=== PATIENT | female | born 1970 | race Two or more races ===

== ENCOUNTER 2022-03-15 18:13 | Inpatient (IN) | payer BC, SELFPAY ==
[2022-03-15 18:17] VITALS: BP 99/51; PULSE 112; RESP 16; TEMP 36.2; O2SAT 97
--- NOTE | 2022-03-15 18:46 | ED_ITS ---
HPI - General Adult General Time Seen by Provider: 18:47 Date Seen: 03/15/22 Chief complaint: Diabetic Related Problem Stated complaint: high blood sugar Time Seen by Provider: 03/15/22 18:26 Source: patient Mode of arrival: ambulatory Limitations: no limitations History of Present Illness HPI narrative: 51-year-old female who comes in today with an episode of lightheadedness at home. She says she is laying down and felt lightheaded and warm. She is concerned she might have a urinary tract infection as she has had some urinary frequency but no dysuria. She denies head pain, chest pain, shortness of breath, fevers, abdominal pain, numbness or tingling in the arms or legs. She does note some loose stools which is not unusual for her, no black or tarry stoo ls. She says she felt chilled earlier. Related Data Allergies Allergy/AdvReac Type Severity Reaction Status Date / Time metformin AdvReac Unknown Diarrhea Verified 03/15/22 20:30 Review of Systems Status of ROS: Reports: 10 or more systems reviewed and unremarkable except as noted in History and below Exam Narrative: Exam Narrative: General: Well-developed and well-nourished, no acute distress Head: Atraumatic and normocephalic Eyes: Pupils are equal reactive, extraocular motions intact, conjunctiva clear ENT: External nose and ears are normal, posterior pharynx without erythema or exudate Neck: No midline cervical tenderness, full spontaneous range of motion the neck, trachea midline, no adenopathy Heart: Tachycardic but regular no murmurs or thrills Lungs: Clear to auscultation bilaterally without wheezes or crackles Abdomen: Soft, nontender, nondistended with active bowel sounds Musculoskeletal: No tenderness, deformity, or edema Neurologic: Awake, alert, and oriented x3, no gross focal neurologic deficits, cranial nerves intact as tested Psych: Mood and affect are appropriate Skin: No rashes Const: Vital Signs, click to edit/add: Vital Signs - 24 hr 03/15/22 18:17 Temperature 97.1 F L Pulse Rate [Pulse Oximeter] 112 H Respiratory Rate 16 Blood Pressure [Le ft Upper Arm] 99/51 L Pulse Oximetry 97 Course Course Hospital Course: Patient seen examined, prior records are reviewed. Differential diagnosis includes but not limited to DKA, dehydration, electrolyte disturbance, pyelonephritis, sepsis, pneumonia, cardiomyopathy. Patient reports lightheadedness today as well as a chilled. On initial exam here, she is tachycardic and hypotensive. Mucous membranes are dry. No abdominal pain and no tenderness on exam. Lungs are clear and she has no shortness of breath, chest pain, or cough. Labs, IV fluids are initiated. Chest x-ray is ordered as well. Reevaluation(s) Reevaluation #1: White blood cell count is elevated, venous blood gas is reassuring. Remaining labs including lactate are pending. Given hypotension and tachycardia as well as leukocytosis, patient meets sepsis criteria. Zosyn and vancomycin will be ordered along with double fluid bolus, CT scan of chest, abdomen, and pelvis ordered to evaluate for source of sepsis. Likely this will be urinary but cannot exclude other sources based on physical exam limitations related to body habitus. Time: 20:05 Reevaluation #2: Lactate is significantly elevated at 5.8. IV fluid bolus and antibiotics have already been initiated. Time: 20:11 Reevaluation #3: Care discussed with Dr. Del Valle for admission. Urinalysis is consistent with urinary tract infection, IV antibiotics have already been initiated. CT scan is pending. Blood pressure improved with fluids, will recheck lactate. Time: 21:04 Vital Signs Vital signs: Initial Vital Signs Temperature 97.1 F L 03/15/22 18:17 Temperature Source Temporal Artery Scan 03/15/22 18:17 Pulse Rate 112 H 03/15/22 18:17 Pulse Rhythm 03/15/22 18:17 Respiratory Rate 16 03/15/22 18:17 Blood Pressure 99/51 L 03/15/22 18:17 Blood Pressure Mean 67 03/15/22 18:17 Blood Pressure Position Semi-Fowlers 03/15/22 18:17 Pulse Oximetry 97 03/15/22 18:17 Vital Signs Temperature 97.1 F L 03/15/22 18:17 Pulse Rate 112 H 03/15/22 18:17 Respiratory Rate 16 03/15/22 18:17 Blood Pressure 99/51 L 03/15/22 18:17 Pulse Oximetry 97 03/15/22 18:17 Temperature 97.1 F L 03/15/22 18:17 Pulse Rate 112 H 03/15/22 18:17 Respiratory Rate 16 03/15/22 18:17 Blood Pressure 99/51 L 03/15/22 18:17 Pulse Oximetry 97 03/15/22 18:17 Medical Decision Making Medical Records Medical records reviewed: Yes I reviewed the patient's medical records Lab Data Lab results reviewed: Yes I reviewed the patient's lab results Labs: Lab Results 03/15/22 03/15/22 03/15/22 Range/Units 18:49 19:02 19:02 WBC 15.58 H (4.50-11.00) K/uL RBC 4.25 (4.00-5.20) m/uL Hgb 12.0 (12.0-16.0) gm/dL Hct 36.5 (33.0-51.0) % MCV 86 (80-100) fL MCH 28 (26-34) pg MCHC 33 (32-36) gm/dL RDW Coeff of [place] 13.7 (11.5-15.5) % Plt Count 87 L (140-440) K/uL Neut % (Auto) 93.8 H (42.0-72.0) % Lymph % (Auto) 2.6 L (20-44) % [place] % (Auto) 3.0 (0.0-11.0) % Eos % (Auto) 0.0 (0.0-7.0) % Baso % (Auto) 0.1 (0.0-3.0) % Neut # (Auto) 14.60 H (1.7-7.0) K/uL Lymph # (Auto) 0.40 L (0.90-2.90) K/uL [place] # (Auto) 0.50 (0.00-0.90) K/UL Eos # (Auto) 0.00 (0.00-0.50) K/uL Baso # (Auto) 0.00 (0.00-0.30) K/uL Abs Immat Gran (auto) 0.10 (0.00-0.30) K/uL Imm/Tot Granulo (auto) 0.5 % VBG pH 7.346 (7.32-7.43) VBG pCO2 40 (40-50) mmHG VBG pO2 30.2 (25-47) mmHG VBG HCO3 22 (21-28) mmol/L Sodium (135-149) mmol/L Potassium (3.6-5.1) mmol/L Chloride (96-114) mmol/L Carbon Dioxide (20-32) mmol/L BUN (7-30) mg/dL Creatinine (0.5-1.5) mg/dL Estimated GFR ml/min Glucose (60-115) mg/dL Lactate (0.5-1.9) mmol/L Calcium (8.4-10.6) mg/dL Total Bilirubin (0.1-1.5) mg/dL Direct Bilirubin (0.0-0.5) mg/dL AST (12-35) U/L ALT (4-35) U/L Alkaline Phosphatase (40-150) U/L Total Protein (6.0-8.3) g/dL Albumin (3.3-5.0) g/dL Lipase (23-300) U/L Urine Color (Yellow) Urine Appearance (Clear) Urine pH (5.0-8.5) Ur Specific [place] (1.000-1.030) Urine Protein (Negative) Urine Glucose (UA) (Negative) Urine Ketones (Negative) Urine Blood (Negative) Urine Nitrite (Negative) Urine Bilirubin (Negative) Urine Urobilinogen (0.2-1.0) Ur Leukocyte Esterase (Negative) Urine RBC (0-2) Urine WBC (0-5) Ur Squamous Epith Cells (None-Few) Urine Bacteria (None) POC Troponin I 0.03 (0.01-0.04) ng/ml 03/15/22 03/15/22 03/15/22 Range/Units 19:02 19:02 19:50 WBC (4.50-11.00) K/uL RBC (4.00-5.20) m/uL Hgb (12.0-16.0) gm/dL Hct (33.0-51.0) % MCV (80-100) fL MCH (26-34) pg MCHC (32-36) gm/dL RDW Coeff of [place] (11.5-15.5) % Plt Count (140-440) K/uL Neut % (Auto) (42.0-72.0) % Lymph % (Auto) (20-44) % [place] % (Auto) (0.0-11.0) % Eos % (Auto) (0.0-7.0) % Baso % (Auto) (0.0-3.0) % Neut # (Auto) (1.7-7.0) K/uL Lymph # (Auto) (0.90-2.90) K/uL [place] # (Auto) (0.00-0.90) K/UL Eos # (Auto) (0.00-0.50) K/uL Baso # (Auto) (0.00-0.30) K/uL Abs Immat Gran (auto) (0.00-0.30) K/uL Imm/Tot Granulo (auto) % VBG pH (7.32-7.43) VBG pCO2 (40-50) mmHG VBG pO2 (25-47) mmHG VBG HCO3 (21-28) mmol/L Sodium 131 L (135-149) mmol/L Potassium 3.3 L (3.6-5.1) mmol/L Chloride 101 (96-114) mmol/L Carbon Dioxide 20 (20-32) mmol/L BUN 31 H (7-30) mg/dL Creatinine 1.4 (0.5-1.5) mg/dL Estimated GFR 46 ml/min Glucose 512 H* (60-115) mg/dL Lactate 5.8 H* (0.5-1.9) mmol/L Calcium 7.9 L (8.4-10.6) mg/dL Total Bilirubin 2.3 H (0.1-1.5) mg/dL Direct Bilirubin 0.8 H (0.0-0.5) mg/dL AST 27 (12-35) U/L ALT 27 (4-35) U/L Alkaline Phosphatase 272 H (40-150) U/L Total Protein 6.0 (6.0-8.3) g/dL Albumin 2.9 L (3.3-5.0) g/dL Lipase 131 (23-300) U/L Urine Color Brown A (Yellow) Urine Appearance Cloudy A (Clear) Urine pH 6.0 (5.0-8.5) Ur Specific [place] 1.025 (1.000-1.030) Urine Protein 3+ A (Negative) Urine Glucose (UA) 2+ A (Negative) Urine Ketones Trace A (Negative) Urine Blood 3+ A (Negative) Urine Nitrite Positive A (Negative) Urine Bilirubin 2+ A (Negative) Urine Urobilinogen 4.0 (0.2-1.0) Ur Leukocyte Esterase 3+ A (Negative) Urine RBC 5-10 A (0-2) Urine WBC 25-50 A (0-5) Ur Squamous Epith Cells None (None-Few) Urine Bacteria Many A (None) POC Troponin I (0.01-0.04) ng/ml Critical Care Time Critical Care Time Critical Care Time: Yes Attestation: The patient required my highest level preparedness to intervene emergently and I personally spent this critical care time directly and personally managing the patient. This critical care time included: Obtaining a history; Examining the patient; Pulse oximetry; Ordering and reviewing of studies; Arranging urgent treatment with development of a management plan; Evaluation of patients response to treatment; Frequent reassessment discussions with other providers. This critical care time was performed to assess and manage the high probability of imminent life-threatening deterioration that could result in multiorgan failure. It was exclusive of separate billable procedures and treating other patients and teaching time. Sepsis with multiple antibiotics Total Critical Care Time in Minutes: 130 Discharge Plan Discharge Clinical Impression: Sepsis, Urinary tract infection Patient Disposition: Admitted As Inpatient
--- NOTE | 2022-03-15 18:48 | CRLHL7_ITS ---
For Patients: As a result of the Century Cures Act, medical imaging exams and procedure reports are released immediately into your electronic medical record. You may view this report before your referring provider. If you have questions, please contact your health care provider. INDICATION: Near-syncope. TECHNIQUE: Chest 2 views. COMPARISON: None FINDINGS: The heart is normal in size. The pulmonary vasculature is within normal limits. There is a nodular opacity within the right mid to upper lung, measuring 1.2 cm. The heart is normal in size. Mild pulmonary vascular congestion. Mild degenerative changes of the spine. IMPRESSION: 1. Nodular opacity measuring 1.2 cm upper to mid right lung, recommend further characterization with CT. 2. Mild pulmonary vascular congestion. Dictated by Dianelys Gutiérrez MD @ 03/15/2022 8:30:47 PM Dictated by: Dianelys Gutiérrez MD @ 03/15/2022 20:31:34 (Electronically Signed)
[2022-03-15 19:25] LABS: HCO3 VBG 22 mmol/L (21-28); PCO2 VBG 40 mmHG (40-50); PO2 VBG 30.2 mmHG (25-47); pH VBG 7.346 (7.32-7.43)
[2022-03-15 19:27] LABS: Basophils Percent Auto 0.1 % (0.0-3.0); Hematocrit 36.5 % (33.0-51.0); Immature Granulocytes Pct Auto 0.5 %; Lymphocytes Percent Auto 2.6 % (20-44); Mean Corpuscular HGB Conc 33 gm/dL (32-36); Mean Corpuscular Hemoglobin 28 pg (26-34); Mean Corpuscular Volume 86 fL (80-100); Neutrophils Percent Auto 93.8 % (42.0-72.0); Platelet Count* 87 K/uL (140-440); RDW Coefficient of Variation % 13.7 % (11.5-15.5); Red Blood Count 4.25 m/uL (4.00-5.20); White Blood Count* 15.58 K/uL (4.50-11.00)
[2022-03-15] MEDS: ONDANSETRON 2 MG/ML inj 4 MG IVP (19:27)
[2022-03-15] MEDS: 0.9 % SODIUM CHLORIDE 1000 ml 1,000 ML IV ×2 (19:30→23:00)
[2022-03-15 19:32] LABS: Slide Review Reflex No
[2022-03-15 19:40] LABS: Troponin, Point-of-Care* 0.03 ng/ml (0.01-0.04)
[2022-03-15 19:51] LABS: Albumin* 2.9 g/dL (3.3-5.0); Chloride* 101 mmol/L (96-114)
[2022-03-15 19:52] LABS: Potassium* 3.3 mmol/L (3.6-5.1); Sodium* 131 mmol/L (135-149)
[2022-03-15 19:54] LABS: Alkaline Phosphatase* 272 U/L (40-150); Aspartate Amino Transferase* 27 U/L (12-35); Bilirubin Direct* 0.8 mg/dL (0.0-0.5); Bilirubin Total* 2.3 mg/dL (0.1-1.5); Blood Urea Nitrogen* 31 mg/dL (7-30); Carbon Dioxide* 20 mmol/L (20-32); Creatinine* 1.4 mg/dL (0.5-1.5); Estimated Glomerular Filt Rate 46 ml/min
[2022-03-15 19:55] LABS: Alanine Aminotransferase* 27 U/L (4-35); Calcium* 7.9 mg/dL (8.4-10.6); Lipase* 131 U/L (23-300)
--- NOTE | 2022-03-15 20:04 | CRLHL7_ITS ---
For Patients: As a result of the Century Cures Act, medical imaging exams and procedure reports are released immediately into your electronic medical record. You may view this report before your referring provider. If you have questions, please contact your health care provider. INDICATION: Sepsis. COMPARISON: Chest radiograph from today. TECHNIQUE: CT examination of the chest, abdomen, and pelvis was performed with the uneventful intravenous administration of 122 cc of Isovue 370 while 3 mm thick axial sections were obtained from above the apices of the lungs through the symphysis pubis. Oral contrast was not administered. Please note that all CT scans at this facility use dose modulation, iterative reconstruction, and/or weight-based dosing when appropriate to reduce radiation dose to as low as reasonably achievable. FINDINGS: : In the chest, the lungs are clear with no sign of significant infiltrate or mass. The apparent nodule in the medial the right upper chest is seen to be an osteophyte arising from the inferior costochondral junction of the 1st rib. There is no sign of any pulmonary infiltrate or effusion. There is satisfactory enhancement of the pulmonary arteries with no sign of pulmonary embolism. There is no sign of mediastinal or hilar mass or adenopathy. The heart is normal in appearance for the patient`s age. There is age appropriate appearance of the thoracic aorta and ascending great vessels. There is no sign of supraclavicular or axillary mass or adenopathy. There is minimal left hydronephrosis and mild left hydroureter extending to the UVJ. There is no sign of any obstructing calculus or mass to result in the obstruction. There is prominent thickening of the wall of the largely collapsed urinary bladder consistent with prominent cystitis which may result in the left ureteral obstruction. There is a very tiny cortical cyst in the posterior upper pole of the left kidney. The right kidney is normal in appearance. There is no sign of right-sided hydronephrosis or hydroureter. There is no sign of renal or ureteral calculi on either side. In the abdomen, the liver, spleen, pancreas, and adrenals are normal in appearance. The kidneys are normal in appearance. The gallbladder is normal in appearance. The abdominal aorta is normal in caliber with no sign of dilatation. There is no sign of retroperitoneal mass or adenopathy. The stomach, loops of small bowel, and colon in the abdomen are normal in appearance. In the pelvis, the appendix is nonvisualized, but there is no sign of an inflammatory process in the area of the appendix. The loops of small bowel, colon, and rectum in the pelvis are normal in appearance. The uterus normal in appearance. There is no sign of pelvic or inguinal mass or adenopathy. There is no sign of free air or free fluid in the abdomen or pelvis. There is prominent L4-5 disc degenerative disease. There is moderate diffuse L4-5 disc bulging with posterior osteophytic ridging which probably produces moderate spinal stenosis. There is mild scoliosis of the thoracic and lumbar spine convex towards the left. IMPRESSION: Minimal left hydronephrosis and mild left hydroureter which appears to be the result of prominent cystitis. No sign of right hydronephrosis or right hydroureter. Normal CT of the chest with contrast. The possible nodule seen in the right upper chest on today`s chest radiograph appears to be simply an osteophyte arising from the inferior costochondral junction of the right 1st rib. CT of the abdomen shows no additional abnormalities. CT of the pelvis shows no additional abnormalities. Probable moderate spinal stenosis at L4-5. Please note that all CT scans at this facility use dose modulation, iterative reconstruction, and/or weight-based dosing when appropriate to reduce radiation dose to as low as reasonably achievable. Dictated by Gage Anderson MD @ 03/15/2022 10:24:29 PM (Electronically Signed)
[2022-03-15 20:06] LABS: Glucose* 512 mg/dL (60-115)
[2022-03-15 20:09] LABS: Lactate* 5.8 mmol/L (0.5-1.9)
[2022-03-15 20:11] LABS: Appearance Urine Cloudy (Clear); Bilirubin Urine 2+ (Negative); Blood Urine 3+ (Negative); Color Urine Brown (Yellow); Glucose Urine 2+ (Negative); Ketones Urine Trace (Negative); Leukocyte Esterase Urine 3+ (Negative); Nitrite Urine Positive (Negative); Protein Urine 3+ (Negative); Specific Gravity Urine 1.025 (1.000-1.030)
[2022-03-15 20:15] VITALS: BP 114/56; PULSE 110; RESP 18; O2SAT 97
[2022-03-15 20:25] LABS: Bacteria Urine Many; WBC Urine 25-50 (0-5)
[2022-03-15 20:43] VITALS: BP 87/45; PULSE 104; RESP 18; O2SAT 96
[2022-03-15 21:36] LABS: Lactate* 4.1 mmol/L (0.5-1.9)
[2022-03-15] MEDS: PIPERACILLIN/TAZOBACTAM 3.375 GM in 0.9 % SODIUM CHLORIDE Mini-bag 100 ML IVPB (21:36)
--- NOTE | 2022-03-15 21:37 | ED.NURSE ---
Critical received from lab: Lactate 4.1. informed.
[2022-03-15 22:00] VITALS: BP 103/32; PULSE 106; RESP 18; O2SAT 96
[2022-03-15 22:10] LABS: SARS PCR* Negative SARS-CoV-2 (Negative)
[2022-03-15 22:40] VITALS: BP 96/61; PULSE 101; RESP 18; O2SAT 96
[2022-03-15 23:00] VITALS: BP 99/53; PULSE 101; PULSE 129; RESP 18; O2SAT 96
--- NOTE | 2022-03-15 23:15 | ED.NURSE ---
Blood sugar 400
--- NOTE | 2022-03-15 23:25 | PM.IMHP1 ---
Hospitalist- H&P: HPI History of Present Illness Date Seen: 03/15/22 Chief complaint: high blood sugar Narrative: Alison Dela Cruz is a 51 year old diabetic female admitted through the emergency department with onset of chills and vomiting today. Patient reports that she was in her usual state of health until this morning when she had onset of chills and shivering. She had 1 emesis which was nonbloody. She felt a little shortness of breath she felt fatigue and malaise. She lost her appetite. She has not had a cold or cough. No chest pain. She has chronic abdominal pain which has not changed. She has not had a change in her bowels. No bloody stools. She does have some diarrhea from Crohn's disease. She has had urinary hesitancy but no clear dysuria and no flank pain. Much of the information noted here is from the medical record. Patient struggles to give me any details about her medical history, medications, recent evaluation and treatment. Review of Systems Narrative: She reports that she was doing fairly well until this morning when she had onset of shaking chills. No other recent symptoms of acute illness. She does report chronic dyspnea, chronic abdominal pain, chronic diarrhea. Urinary incontinence also chronic problem. [facility] Medical History (Updated 03/15/22 @ 23:44 by Fred Del Valle MD) Cognitive impairment Complex partial epilepsy Crohn's disease Depression Diabetes mellitus Dyslipidemia Hyperlipidemia Hypersomnia Morbid obesity [place] Peripheral neuropathy Urinary incontinence, urge Family History (Updated 03/15/22 @ 23:35 by Fred Del Valle MD) Mother Diabetes Sister Diabetes Social History (Updated 03/15/22 @ 23:36 by Fred Del Valle MD) Narrative: She lives in [place] with her sister and her sister's family. Sister is Nicci Davila. 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 Code status is full. She does not smoke. She rarely drinks alcohol. She does not work outside the home. Her sister sets up her medications for her Meds Home Medications and Allergies Allergies Allergy/AdvReac Type Severity Reaction Status Date / Time metformin AdvReac Unknown Diarrhea Verified 03/15/22 20:30 Exam Narrative: Exam Narrative: She is alert and appears in no obvious distress. Tired appearing. She follows simple instructions well. She answers questions appropriately though appears to have limited knowledge of recent medical evaluation. For example she did not remember that she has recently had a sleep study or colonoscopy. She did recall having a recent lumbar puncture. She did not know her medications except her insulin. Eyes normal oropharynx with very small airway neck is supple without mass or adenopathy. Respirations are clear to auscultation without wheezing rales rhonchi. Cardiovascular distant S1, S2, regular rate and rhythm. Abdomen: Bowel sounds active. Abdomen is soft without tenderness or mass. No significant intertriginous rash. External genitalia normal. Extremities without significant edema. She has intact pulses. Good capillary refill. No rash. Const: Vital Signs, click to edit/add: Vital Signs - 24 hr 03/15/22 18:17 Temperature 97.1 F L Pulse Rate [Pulse Oximeter] 112 H Respiratory Rate 16 Blood Pressure [Le ft Upper Arm] 99/51 L Pulse Oximetry 97 Hospitalist - H&P: Result Labs Labs: Short CBC 03/15/22 Range/Units 19:02 WBC 15.58 H (4.50-11.00) K/uL Hgb 12.0 (12.0-16.0) gm/dL Hct 36.5 (33.0-51.0) % Plt Count 87 L (140-440) K/uL BMP 03/15/22 19:02 Sodium 131 L Potassium 3.3 L Chloride 101 Carbon Dioxide 20 BUN 31 H Creatinine 1.4 Glucose 512 H* Calcium 7.9 L Liver Function 03/15/22 Range/Units 19:02 Total Bilirubin 2.3 H (0.1-1.5) mg/dL Direct Bilirubin 0.8 H (0.0-0.5) mg/dL AST 27 (12-35) U/L ALT 27 (4-35) U/L Alkaline Phosphatase 272 H (40-150) U/L Albumin 2.9 L (3.3-5.0) g/dL Urine 03/15/22 Range/Units 19:50 Urine Color Brown A (Yellow) Urine Appearance Cloudy A (Clear) Urine pH 6.0 (5.0-8.5) Ur Specific [place] 1.025 (1.000-1.030) Urine Protein 3+ A (Negative) Urine Glucose (UA) 2+ A (Negative) Imaging CT Chest/Ab/Pelvis: Radiologist's impression: IMPRESSION: Minimal left hydronephrosis and mild left hydroureter which appears to be the result of prominent cystitis. No sign of right hydronephrosis or right hydroureter. Normal CT of the chest with contrast. The possible nodule seen in the right upper chest on today`s chest radiograph appears to be simply an osteophyte arising from the inferior costochondral junction of the right 1st rib. CT of the abdomen shows no additional abnormalities. CT of the pelvis shows no additional abnormalities. Probable moderate spinal stenosis at L4-5. Assessment and Plan Assessment and plan (1) Sepsis: Problem comment: Tachycardic, tachypneic, hypotensive, elevated lactate and elevated white count. Urinary source. Responding fairly well to fluids and antibiotics. Status: Acute (2) Urinary tract infection: Status: Acute (3) Electrolyte abnormality: Problem comment: Monitor and correct with fluid resuscitation Status: Acute (4) Diabetes mellitus: Problem comment: Currently hyperglycemic. Will attempt to control with subcutaneous insulin. Status: Acute (5) Cognitive impairment: Problem comment: Significant pre-existing cognitive impairment. Will evaluate her ability to manage her medical problems while she is here. Status: Acute (6) Morbid obesity: Problem comment: Appears to be somewhat physically disabled due to morbid obesity Status: Acute Plan Will admit for IV fluids, IV antibiotics, monitoring sepsis, management of diabetes. Total time spent today is 80 minutes, 50 minutes in coordination of care and discussing with patient and other providers ongoing management of sepsis due to UTI and diabetes
--- NOTE | 2022-03-15 23:46 | ED.NURSE ---
sisters Radhames Hall [phone] lives in [place] Kya Davila (lives together) [phone]
[2022-03-16] VITALS (8 sets, daily range): BP systolic 93–146; BP diastolic 62–87; PULSE 109–129; RESP 20–24; TEMP 36.6–37.4; O2SAT 91–95; BMI 51.0
[2022-03-16] MEDS: POTASSIUM BICARB 25 MEQ EFFERVESCENT TAB PO (00:03)
[2022-03-16] MEDS: LACTATED RINGERS 1000 ML 1,000 ML 125 ML IV ×3 (00:15→16:57)
[2022-03-16] MEDS: PIPERACILLIN/TAZOBACTAM 3.375 GM in 0.9 % SODIUM CHLORIDE Mini-bag 100 ML IVPB ×4 (02:26→23:06)
[2022-03-16] MEDS: ACETAMINOPHEN 325 MG TABLET 650 MG PO ×2 (03:00→19:20)
--- NOTE | 2022-03-16 07:10 | PC.NURSE ---
Patient arrived to unit at 2330. Denies pain. A1-2. Denies N/V. Afebrile. C/o headache, administered Tylenol for relief. Tachycardia of 129bpm. [place] updated. No new orders. Intermittent dry cough.
[2022-03-16 07:30] LABS: Lactate* 4.6 mmol/L (0.5-1.9)
[2022-03-16 07:35] LABS: Albumin* 2.8 g/dL (3.3-5.0)
[2022-03-16 07:36] LABS: Chloride* 108 mmol/L (96-114); Potassium* 3.3 mmol/L (3.6-5.1); Sodium* 135 mmol/L (135-149)
[2022-03-16 07:38] LABS: Alkaline Phosphatase* 185 U/L (40-150); Aspartate Amino Transferase* 31 U/L (12-35); Bilirubin Direct* 1.4 mg/dL (0.0-0.5); Bilirubin Total* 3.1 mg/dL (0.1-1.5); Blood Urea Nitrogen* 32 mg/dL (7-30); Carbon Dioxide* 18 mmol/L (20-32); Creatinine* 1.6 mg/dL (0.5-1.5); Est. Creatinine Clearance* 33.27; Estimated Glomerular Filt Rate 39 ml/min; Glucose* 257 mg/dL (60-115)
[2022-03-16 07:39] LABS: Alanine Aminotransferase* 26 U/L (4-35); Calcium* 7.8 mg/dL (8.4-10.6); Magnesium* 1.7 mg/dL (1.5-2.6)
[2022-03-16 08:25] LABS: Hematocrit 36.3 % (33.0-51.0); Hemoglobin* 12.2 gm/dL (12.0-16.0); Mean Corpuscular HGB Conc 34 gm/dL (32-36); Mean Corpuscular Hemoglobin 29 pg (26-34); Mean Corpuscular Volume 85 fL (80-100); Platelet Count* 52 K/uL (140-440); Red Blood Count 4.28 m/uL (4.00-5.20); White Blood Count* 23.38 K/uL (4.50-11.00)
[2022-03-16 08:26] LABS: Immature Granulocytes Pct Auto 1.9 %; Lymphocytes Percent Auto 2.6 % (20-44); Monocytes Percent Auto 4.2 % (0.0-11.0); Neutrophils Percent Auto 91.3 % (42.0-72.0); RDW Coefficient of Variation % 14.1 % (11.5-15.5); Slide Review Reflex Yes
[2022-03-16 08:29] LABS: Slide Review Acceptable Review (Acceptable)
--- NOTE | 2022-03-16 09:56 | PM.IMPN1 ---
Progress Note: A&P Assessment and plan (1) Sepsis: Problem details: @ admission: Tachycardic, tachypneic, hypotensive, elevated lactate and elevated white count. Urinary source. Responding fairly well to fluids and antibiotics. TODAY: remains tachy; +blood cultures, afebrile. WBC, lactate, bilirubin all elevated, platelets decreased - fluid bolus given this am. remains weak and two assist with walker. talked with sister, Nicci, in the room with patient Status: Acute (2) Bacteremia: Problem details: gram neg rods in all cultures continue Zosyn until stable and sensitives known - move to our CCU for closer management Status: Acute (3) Urinary tract infection: Problem details: as above Status: Acute (4) Diabetes mellitus: Problem details: bedside glucose: 268, 400, 451 continue basal & bolus with accuchecks Status: Acute (5) Electrolyte abnormality: Problem details: low potassium, low platelets, elevated biliruin -- all sepsis related. Status: Acute (6) Cognitive impairment: Problem details: Significant pre-existing cognitive impairment. Will evaluate her ability to manage her medical problems while she is here. Status: Acute (7) Morbid obesity: Problem details: Appears to be somewhat physically disabled due to morbid obesity Status: Acute Subjective Date Seen: 03/16/22 Interval history: Daily Progress Note - Hospital Medicine Day #: 2, Day 2 Zosyn CC: bacteremic; insulin dep diabetes/hyperglycemia/ weakness, cognitive decline OVERNIGHT UPDATES FROM STAFF & MED, LAB, IMAGING UPDATES remains weak, a little confused but answers questions today. we called her sister on patients cell phone. Nicci says Alison is staying with her currently while she looks for better living situation for her sister. she states she at a baseline can walk and sometimes uses a cane - this weakness today of barely being able to stand and using a walker and unsteadiness is all new. I explained +blood cultures, lactate, creatinine levels and need for CCU care (transfer to our CCU status) and continue fluids, antibiotics, blood sugar management. She agreed and understood plan. Afebrile overnight, T-max 98.9? Blood pressures are soft 93 systolic to 112, over 51 to 56 Tachycardic 129, 109, 117 respiratory rate 24, satting 93% on room air 126 kilos Leukocytosis is increased from 15.6-23.4 Hemoglobin is stable Platelet count is dropping 87-52 Blood gas yesterday at 7:00 p.m. was reassuring with a normal pH, CO2 and bicarb This morning's chemistries show a mildly depressed potassium, elevated BUN and creatinine as compared to yesterday Creatinine is now 1.6 from 1.4 BUN is 32 from 31 Lactate is 4.6 from 4.1 and previously 5.8 Magnesium is normal Calcium is mildly depressed at 7.8 but this is not ionized Total bili is climbing, direct bili is climbing I think this is all from sepsis Albumin is low I reviewed the urine from yesterday, blood cultures and urine cultures CT chest abdomen pelvis IMPRESSION: Minimal left hydronephrosis and mild left hydroureter which appears to be the result of prominent cystitis. No sign of right hydronephrosis or right hydroureter. Normal CT of the chest with contrast. The possible nodule seen in the right upper chest on today`s chest radiograph appears to be simply an osteophyte arising from the inferior costochondral junction of the right 1st rib. CT of the abdomen shows no additional abnormalities. CT of the pelvis shows no additional abnormalities. Probable moderate spinal stenosis at L4-5 Review of Systems: See subjective Cardiac: No new chest pain/pressure/palpitations. Respiratory: no new dyspnea. GI: No abdominal bloating Objective: up in the chair; I observed her getting up with staff and walking to bathroom, fairly steady but weak Vitals: see above Lungs: Clear. Cardiac: S1S2. Disposition/Potential discharge - Likely to return to previous living situation. Total time is 35 minutes with greater than 50% spent in counseling and coordination of care. . Exam Const: Vital Signs, click to edit/add: Vital Signs - 24 hr 03/15/22 18:17 03/15/22 23:00 03/15/22 22:40 Temperature 97.1 F L Pulse Rate Pulse Rate [Pulse Oximeter] 112 H 101 H 101 H Pulse Rate [Right] Respiratory Rate 16 18 18 Blood Pressure [Le ft Arm] Blood Pressure [Le ft Upper Arm] 99/51 L 99/53 L 96/61 Pulse Oximetry 97 96 96 Oxygen Delivery Me thod Room Air Room Air 03/15/22 22:00 03/15/22 20:43 03/15/22 20:15 Temperature Pulse Rate Pulse Rate [Pulse Oximeter] 106 H 104 H 110 H Pulse Rate [Right] Respiratory Rate 18 18 18 Blood Pressure [Le ft Arm] Blood Pressure [Le ft Upper Arm] 103/32 L 87/45 L 114/56 L Pulse Oximetry 96 96 97 Oxygen Delivery Ok thod Room Air Room Air Room Air 03/15/22 23:00 03/16/22 03:00 03/16/22 00:00 Temperature 98.9 F 98.4 F Pulse Rate 129 H Pulse Rate [Pulse Oximeter] Pulse Rate [Right] 129 H 117 H Respiratory Rate 24 24 Blood Pressure [Le ft Arm] 112/87 93/66 Blood Pressure [Le ft Upper Arm] Pulse Oximetry 93 94 Oxygen Delivery Ok thod Room Air Room Air 03/16/22 00:00 03/16/22 07:46 Temperature Pulse Rate 109 H Pulse Rate [Pulse Oximeter] Pulse Rate [Right] Respiratory Rate 24 Blood Pressure [Le ft Arm] Blood Pressure [Le ft Upper Arm] Pulse Oximetry 94 Oxygen Delivery Ok thod Room Air Labs Labs: Laboratory Results - last 24 hr 03/15/22 03/15/22 03/15/22 18:49 19:02 19:02 WBC 15.58 H Corrected WBC RBC 4.25 Hgb 12.0 Hct 36.5 MCV 86 MCH 28 MCHC 33 RDW Coeff of Laquita 13.7 Plt Count 87 L Neut % (Auto) 93.8 H Lymph % (Auto) 2.6 L [place] % (Auto) 3.0 Eos % (Auto) 0.0 Baso % (Auto) 0.1 Neut # (Auto) 14.60 H Lymph # (Auto) 0.40 L [place] # (Auto) 0.50 Eos # (Auto) 0.00 Baso # (Auto) 0.00 Abs Immat Gran (auto) 0.10 Neutrophils % (Manual) Lymphocytes % (Manual) Reactive Lymphs % (Man) Monocytes % (Manual) Eosinophils % (Manual) Basophils % (Manual) Metamyelocytes % (Man) Myelocytes % (Man) Promyelocytes % (Man) Blast Cells % (Manual) Imm/Tot Granulo (auto) 0.5 Abs Neuts (Manual) Lymphocytes # (Manual) Monocytes # (Manual) Eosinophils # (Manual) Basophils # (Manual) Abs Metamyelocytes (Man) Abs Myelocytes (Man) Abs Promyelocytes (Man) Abs Blast Cells (Man) Nucleated RBCs Diff Slide Review Hypersegmented Neuts Smudge Cells Toxic Granulation Dohle Bodies Dee Rods Clumped Platelets Large Platelets Giant Platelets Dimorphic RBCs Polychromasia Hypochromasia Poikilocytosis Basophilic Stippling Anisocytosis Microcytosis Macrocytosis Spherocytes Pappenheimer Bodies Sickle Cells Target Cells Tear Drop Cells Ovalocytes Stomatocytes Helmet Cells [place] Bodies [place] Rings Jc Cells Acanthocytes (Spur) Rouleaux Schistocytes VBG pH 7.346 VBG pCO2 40 VBG pO2 30.2 VBG HCO3 22 Sodium Potassium Chloride Carbon Dioxide BUN Creatinine Estimated Creat Clear Estimated GFR Glucose Lactate Calcium Magnesium Total Bilirubin Direct Bilirubin AST ALT Alkaline Phosphatase Total Protein Albumin Lipase Urine Color Urine Appearance Urine pH Ur Specific [place] Urine Protein Urine Glucose (UA) Urine Ketones Urine Blood Urine Nitrite Urine Bilirubin Urine Urobilinogen Ur Leukocyte Esterase Urine RBC Urine WBC Ur Squamous Epith Cells Urine Bacteria SARS-CoV-2 (PCR) POC Troponin I 0.03 03/15/22 03/15/22 03/15/22 19:02 19:02 19:50 WBC Corrected WBC RBC Hgb Hct MCV MCH MCHC RDW Coeff of [place]quita Plt Count Neut % (Auto) Lymph % (Auto) [place] % (Auto) Eos % (Auto) Baso % (Auto) Neut # (Auto) Lymph # (Auto) [place] # (Auto) Eos # (Auto) Baso # (Auto) Abs Immat Gran (auto) Neutrophils % (Manual) Lymphocytes % (Manual) Reactive Lymphs % (Man) Monocytes % (Manual) Eosinophils % (Manual) Basophils % (Manual) Metamyelocytes % (Man) Myelocytes % (Man) Promyelocytes % (Man) Blast Cells % (Manual) Imm/Tot Granulo (auto) Abs Neuts (Manual) Lymphocytes # (Manual) Monocytes # (Manual) Eosinophils # (Manual) Basophils # (Manual) Abs Metamyelocytes (Man) Abs Myelocytes (Man) Abs Promyelocytes (Man) Abs Blast Cells (Man) Nucleated RBCs Diff Slide Review Hypersegmented Neuts Smudge Cells Toxic Granulation Dohle Bodies Dee Rods Clumped Platelets Large Platelets Giant Platelets Dimorphic RBCs Polychromasia Hypochromasia Poikilocytosis Basophilic Stippling Anisocytosis Microcytosis Macrocytosis Spherocytes Pappenheimer Bodies Sickle Cells Target Cells Tear Drop Cells Ovalocytes Stomatocytes Helmet Cells [place] Bodies [place] Rings Jc Cells Acanthocytes (Spur) Rouleaux Schistocytes VBG pH VBG pCO2 VBG pO2 VBG HCO3 Sodium 131 L Potassium 3.3 L Chloride 101 Carbon Dioxide 20 BUN 31 H Creatinine 1.4 Estimated Creat Clear Estimated GFR 46 Glucose 512 H* Lactate 5.8 H* Calcium 7.9 L Magnesium Total Bilirubin 2.3 H Direct Bilirubin 0.8 H AST 27 ALT 27 Alkaline Phosphatase 272 H Total Protein 6.0 Albumin 2.9 L Lipase 131 Urine Color Brown A Urine Appearance Cloudy A Urine pH 6.0 Ur Specific [place] 1.025 Urine Protein 3+ A Urine Glucose (UA) 2+ A Urine Ketones Trace A Urine Blood 3+ A Urine Nitrite Positive A Urine Bilirubin 2+ A Urine Urobilinogen 4.0 Ur Leukocyte Esterase 3+ A Urine RBC 5-10 A Urine WBC 25-50 A Ur Squamous Epith Cells None Urine Bacteria Many A SARS-CoV-2 (PCR) POC Troponin I 03/15/22 03/15/22 03/16/22 21:20 21:26 07:00 WBC Cancelled Corrected WBC Cancelled RBC Cancelled Hgb Cancelled Hct Cancelled MCV Cancelled MCH Cancelled MCHC Cancelled RDW Coeff of Laquita Cancelled Plt Count Cancelled Neut % (Auto) Cancelled Lymph % (Auto) Cancelled [place] % (Auto) Cancelled Eos % (Auto) Cancelled Baso % (Auto) Cancelled Neut # (Auto) Cancelled Lymph # (Auto) Cancelled [place] # (Auto) Cancelled Eos # (Auto) Cancelled Baso # (Auto) Cancelled Abs Immat Gran (auto) Cancelled Neutrophils % (Manual) Cancelled Lymphocytes % (Manual) Cancelled Reactive Lymphs % (Man) Cancelled Monocytes % (Manual) Cancelled Eosinophils % (Manual) Cancelled Basophils % (Manual) Cancelled Metamyelocytes % (Man) Cancelled Myelocytes % (Man) Cancelled Promyelocytes % (Man) Cancelled Blast Cells % (Manual) Cancelled Imm/Tot Granulo (auto) Cancelled Abs Neuts (Manual) Cancelled Lymphocytes # (Manual) Cancelled Monocytes # (Manual) Cancelled Eosinophils # (Manual) Cancelled Basophils # (Manual) Cancelled Abs Metamyelocytes (Man) Cancelled Abs Myelocytes (Man) Cancelled Abs Promyelocytes (Man) Cancelled Abs Blast Cells (Man) Cancelled Nucleated RBCs Cancelled Diff Slide Review Cancelled Hypersegmented Neuts Cancelled Smudge Cells Cancelled Toxic Granulation Cancelled Dohle Bodies Cancelled Dee Rods Cancelled Clumped Platelets Cancelled Large Platelets Cancelled Giant Platelets Cancelled Dimorphic RBCs Cancelled Polychromasia Cancelled Hypochromasia Cancelled Poikilocytosis Cancelled Basophilic Stippling Cancelled Anisocytosis Cancelled Microcytosis Cancelled Macrocytosis Cancelled Spherocytes Cancelled Pappenheimer Bodies Cancelled Sickle Cells Cancelled Target Cells Cancelled Tear Drop Cells Cancelled Ovalocytes Cancelled Stomatocytes Cancelled Helmet Cells Cancelled [place] Bodies Cancelled [place] Rings Cancelled [place] Cells Cancelled Acanthocytes (Spur) Cancelled Rouleaux Cancelled Schistocytes Cancelled VBG pH VBG pCO2 VBG pO2 VBG HCO3 Sodium Potassium Chloride Carbon Dioxide BUN Creatinine Estimated Creat Clear Estimated GFR Glucose Lactate 4.1 H* Calcium Magnesium Total Bilirubin Direct Bilirubin AST ALT Alkaline Phosphatase Total Protein Albumin Lipase Urine Color Urine Appearance Urine pH Ur Specific [place] Urine Protein Urine Glucose (UA) Urine Ketones Urine Blood Urine Nitrite Urine Bilirubin Urine Urobilinogen Ur Leukocyte Esterase Urine RBC Urine WBC Ur Squamous Epith Cells Urine Bacteria SARS-CoV-2 (PCR) Negative SARS-CoV-2 POC Troponin I 03/16/22 03/16/22 03/16/22 07:00 07:00 07:00 WBC 23.38 H Corrected WBC RBC 4.28 Hgb 12.2 Hct 36.3 MCV 85 MCH 29 MCHC 34 RDW Coeff of Laquita 14.1 Plt Count 52 L Neut % (Auto) 91.3 H Lymph % (Auto) 2.6 L [place] % (Auto) 4.2 Eos % (Auto) 0.0 Baso % (Auto) 0.0 Neut # (Auto) 21.30 H Lymph # (Auto) 0.60 L [place] # (Auto) 1.00 H Eos # (Auto) 0.00 Baso # (Auto) 0.00 Abs Immat Gran (auto) 0.40 H Neutrophils % (Manual) Lymphocytes % (Manual) Reactive Lymphs % (Man) Monocytes % (Manual) Eosinophils % (Manual) Basophils % (Manual) Metamyelocytes % (Man) Myelocytes % (Man) Promyelocytes % (Man) Blast Cells % (Manual) Imm/Tot Granulo (auto) 1.9 Abs Neuts (Manual) Lymphocytes # (Manual) Monocytes # (Manual) Eosinophils # (Manual) Basophils # (Manual) Abs Metamyelocytes (Man) Abs Myelocytes (Man) Abs Promyelocytes (Man) Abs Blast Cells (Man) Nucleated RBCs Diff Slide Review Acceptable Review Hypersegmented Neuts Smudge Cells Toxic Granulation Dohle Bodies Dee Rods Clumped Platelets Large Platelets Giant Platelets Dimorphic RBCs Polychromasia Hypochromasia Poikilocytosis Basophilic Stippling Anisocytosis Microcytosis Macrocytosis Spherocytes Pappenheimer Bodies Sickle Cells Target Cells Tear Drop Cells Ovalocytes Stomatocytes Helmet Cells [place] Bodies [place] Rings Jc Cells Acanthocytes (Spur) Rouleaux Schistocytes VBG pH VBG pCO2 VBG pO2 VBG HCO3 Sodium 135 Potassium 3.3 L Chloride 108 Carbon Dioxide 18 L BUN 32 H Creatinine 1.6 H Estimated Creat Clear 33.27 Estimated GFR 39 Glucose 257 H Lactate 4.6 H* Calcium 7.8 L Magnesium 1.7 Total Bilirubin 3.1 H Direct Bilirubin 1.4 H AST 31 ALT 26 Alkaline Phosphatase 185 H Total Protein 6.0 Albumin 2.8 L Lipase Urine Color Urine Appearance Urine pH Ur Specific [place] Urine Protein Urine Glucose (UA) Urine Ketones Urine Blood Urine Nitrite Urine Bilirubin Urine Urobilinogen Ur Leukocyte Esterase Urine RBC Urine WBC Ur Squamous Epith Cells Urine Bacteria SARS-CoV-2 (PCR) POC Troponin I
[2022-03-16 11:35] LABS: HCO3 VBG 19 mmol/L (21-28); PCO2 VBG 36 mmHG (40-50); PO2 VBG 39.9 mmHG (25-47); pH VBG 7.323 (7.32-7.43)
[2022-03-16] MEDS: 0.9 % SODIUM CHLORIDE 1000 ml 1,000 ML 500 ML IV (12:21)
[2022-03-16 12:33] LABS: C Reactive Protein* 20.3 mg/dL (0.5-1.0)
--- NOTE | 2022-03-16 14:57 | PC.NURSE ---
Care of this patient transferred to Clarissa Desai @ 11:30 am, pt moved from 256 to CCU-4 for CCU status.
[2022-03-16] MEDS: LACTATED RINGERS 1000 ML 1,000 ML 500 ML IV ×2 (15:46→19:21)
--- NOTE | 2022-03-16 16:13 | PC.NURSE ---
Tele at initial assessment sinus tachycardia. Pt denied CP or SOB at initial assessment.
[2022-03-16 16:23] LABS: Lactate* 3.5 mmol/L (0.5-1.9)
[2022-03-16 16:46] LABS: Albumin* 2.6 g/dL (3.3-5.0); Chloride* 106 mmol/L (96-114); Potassium* 3.9 mmol/L (3.6-5.1); Sodium* 133 mmol/L (135-149)
[2022-03-16 16:49] LABS: Alanine Aminotransferase* 30 U/L (4-35); Alkaline Phosphatase* 154 U/L (40-150); Aspartate Amino Transferase* 38 U/L (12-35); Bilirubin Total* 2.6 mg/dL (0.1-1.5); Blood Urea Nitrogen* 36 mg/dL (7-30); Carbon Dioxide* 20 mmol/L (20-32); Creatinine* 1.7 mg/dL (0.5-1.5); Est. Creatinine Clearance* 31.31; Estimated Glomerular Filt Rate 36 ml/min; Total Protein* 5.7 g/dL (6.0-8.3)
[2022-03-16 16:50] LABS: Calcium* 7.5 mg/dL (8.4-10.6)
[2022-03-16 17:02] LABS: C.Difficile Negative (Negative); CDIFFEPI 027 PRESUMPTIVE NEGATIVE (Negative)
[2022-03-16 17:26] LABS: Glucose* 385 mg/dL (60-115)
[2022-03-16] MEDS: LACTOBACILLUS ACIDOPHILUS 1 TABLET 1 TAB PO (18:24)
--- NOTE | 2022-03-16 19:32 | PC.NURSE ---
PATIENT AFEBRILE AND O2 SATS 91-95%RA. SOB WITH EXERTION . UP WITH A1, WALKER AND GAIT BELT AND TOLERATED ACTIVITY WELL. DENIED PAIN UNTIL 1900 AND REPORTED HEADACHE. TYLENOL ADMINISTERED. PATIENT HAVING LOOSE STOOLS. CDIFF SAMPLE SENT AND NEGATIVE. BOTH INCONTINENT AND CONTINENT OF STOOL. PATIENT DENIED N/V. HEART RATE INCREASING THROUGHOUT SHIFT FROM 100'S AT [address] PARNELL UPDATED AND ORDER RECEIVED FOR LACTATED RINGERS BOLUS WHICH WAS STARTED. PATIENT'S SISTER REPORTED PATIENT IS GLUTEN FREE. PATIENT CALLED TO [facility] AND ORDERED SUPPER WHICH WAS CHICKEN [place]. DISCUSSED GLUTEN FREE DIET WITH PATIENT AND SHE STATED SHE WANTED THE PASTA GLUTEN GIVES ME A LITTLE BIT OF A STOMACH ACHE. OFFERED GLUTEN FREE ALTERNATIVES WHICH PATIENT REFUSED.
[2022-03-16] MEDS: LOPERAMIDE HCL 2 MG CAPSULE PO (21:23)
[2022-03-16] MEDS: ATORVASTATIN 10 MG TABLET 20 MG PO (21:23)
[2022-03-17] VITALS (11 sets, daily range): BP systolic 106–165; BP diastolic 57–93; PULSE 104–118; RESP 20–32; TEMP 36.3–38.2; O2SAT 85–98
[2022-03-17] MEDS: NYSTATIN POWDER 1 APPLIC TOPICAL ×3 (01:52→21:27)
[2022-03-17] MEDS: PIPERACILLIN/TAZOBACTAM 3.375 GM in 0.9 % SODIUM CHLORIDE Mini-bag 100 ML IVPB (06:14)
[2022-03-17 06:18] LABS: HCO3 VBG 24 mmol/L (21-28); PCO2 VBG 41 mmHG (40-50); PO2 VBG 21.6 mmHG (25-47)
[2022-03-17 06:24] LABS: Hematocrit 37.1 % (33.0-51.0); Hemoglobin* 12.5 gm/dL (12.0-16.0); Mean Corpuscular HGB Conc 34 gm/dL (32-36); Mean Corpuscular Hemoglobin 28 pg (26-34); Mean Corpuscular Volume 84 fL (80-100); Platelet Count* 58 K/uL (140-440); Red Blood Count 4.43 m/uL (4.00-5.20); White Blood Count* 22.64 K/uL (4.50-11.00)
[2022-03-17 06:27] LABS: Slide Review Reflex No
[2022-03-17 06:46] LABS: Albumin* 2.8 g/dL (3.3-5.0); Chloride* 107 mmol/L (96-114); Potassium* 3.2 mmol/L (3.6-5.1); Sodium* 135 mmol/L (135-149)
--- NOTE | 2022-03-17 06:47 | PC.NURSE ---
Pt pleasant and cooperative. Up numerous times during shift for using the bathroom. For both stool and urine. Inc of both at times. Immodium given earlier in shift to help with loose, incontinent stools. Does well with 1A and walker.
[2022-03-17 06:48] LABS: Bilirubin Total* 2.1 mg/dL (0.1-1.5); Creatinine* 1.3 mg/dL (0.5-1.5); Est. Creatinine Clearance* 40.95; Estimated Glomerular Filt Rate 50 ml/min
[2022-03-17 06:49] LABS: Alanine Aminotransferase* 32 U/L (4-35); Alkaline Phosphatase* 204 U/L (40-150); Aspartate Amino Transferase* 40 U/L (12-35); Blood Urea Nitrogen* 36 mg/dL (7-30); Carbon Dioxide* 22 mmol/L (20-32); Gamma Glutamyl Transpeptidase* 258 U/L (8-55); Glucose* 234 mg/dL (60-115); Total Protein* 6.2 g/dL (6.0-8.3)
[2022-03-17 06:50] LABS: Calcium* 8.1 mg/dL (8.4-10.6); Magnesium* 1.8 mg/dL (1.5-2.6)
[2022-03-17 06:56] LABS: NT Pro B Type NatriureticPept* 8520 PG/mL (0-125)
[2022-03-17 07:08] LABS: C Reactive Protein* 22.1 mg/dL (0.5-1.0); Troponin I* 0.49 ng/mL (0.01-0.04)
--- NOTE | 2022-03-17 07:54 | CRLHL7_ITS ---
For Patients: As a result of the Century Cures Act, medical imaging exams and procedure reports are released immediately into your electronic medical record. You may view this report before your referring provider. If you have questions, please contact your health care provider. INDICATION: Pulmonary nodule apparent CHF. Sepsis. COMPARISON: The chest portion of an 03/15/2022 examination TECHNIQUE: : CT examination of the chest was performed with the uneventful intravenous administration of 95 cc of Isovue 370 while thin axial sections were obtained from above the apices of the lungs to the lung bases. Please note that all CT scans at this facility use dose modulation, iterative reconstruction, and/or weight-based dosing when appropriate to reduce radiation dose to as low as reasonably achievable. FINDINGS: : HEART and MEDIASTINUM: The heart size is normal. There is no mediastinal or hilar adenopathy or mass. There is no pericardial effusion. PULMONARY ARTERIAL CIRCULATION: There is no visible intraluminal filling defect to suggest pulmonary embolus. LUNGS: Findings of mild interstitial edema. Opacities of both lung bases, right greater than left could represent atelectasis, aspiration or pneumonia. PLEURAL SPACES: Small right effusion. Tiny left effusion VISUALIZED UPPER ABDOMEN: Hepatic steatosis. Otherwise, the limited visualized upper abdominal structures appear normal. OSSEOUS STRUCTURES: Age-appropriate appearance. No acute fracture or destructive process. TUBES and LINES: None. IMPRESSION: 1. There is no finding of acute pulmonary embolus. 2. Mild interstitial edema. 3. Bibasilar airspace disease, right greater the left. Small right effusion. Tiny left effusion. The airspace disease could represent atelectasis, aspiration or pneumonia. 4. The lung and pleural findings are new compared to 03/15/20[address] Please note that all CT scans at this facility use dose modulation, iterative reconstruction, and/or weight-based dosing when appropriate to reduce radiation dose to as low as reasonably achievable. Dictated by Gilbert Lance MD @ 03/17/2022 9:01:05 AM (Electronically Signed)
--- NOTE | 2022-03-17 08:53 | REH.OT ---
OT/PT: Patient with decline in status, transferred to CCU4 yesterday, having additional work up today. Per MD, OT/PT to hold today. Will check status tomorrow.
[2022-03-17] MEDS: 0.9 % SODIUM CHLORIDE 1000 ml 1,000 ML 500 ML IV (08:59)
[2022-03-17 09:30] LABS: Lactate* 1.8 mmol/L (0.5-1.9)
[2022-03-17] MEDS: ACETAMINOPHEN 325 MG TABLET 650 MG PO (09:57)
[2022-03-17] MEDS: LOPERAMIDE HCL 2 MG CAPSULE PO (09:57)
[2022-03-17] MEDS: LACTOBACILLUS ACIDOPHILUS 1 TABLET 1 TAB PO ×3 (09:57→17:30)
[2022-03-17 10:01] LABS: Troponin I* 0.06 ng/mL (0.01-0.04)
[2022-03-17] MEDS: IPRAT-ALBUT 0.5-2.5 MG/3 ML NEB 1 NEB IH ×3 (10:06→21:27)
[2022-03-17] MEDS: NYSTATIN CREAM 30 GM 1 APPLIC TOPICAL (10:19)
--- NOTE | 2022-03-17 11:36 | PM.IMPN1 ---
Progress Note: A&P Assessment and plan (1) Sepsis: Problem details: @ admission: Tachycardic, tachypneic, hypotensive, elevated lactate and elevated white count. Urinary source. Responding fairly well to fluids and antibiotics. TODAY: remains tachy; +blood cultures, tmax 100.8 WBC, lactate, bilirubin all downtrending; platelets decreased but stable. CRP up, procal down -- all sepsis related. fluid bolus given this am of 1 liter NS, continue LR at 125cc/hr adding nebs; oxygen; aerobika/ISP changed abx to rocephin, recheck blood cultures and urine this am Status: Acute (2) Bacteremia: Problem details: gram neg rods in all cultures CCU care fluids; abx no pressor support currently Status: Acute (3) Demand ischemia: Problem details: trend troponin, treat underlying issues; soft blood pressures; tachy; on telemetry; reviewed ECG no ST segment changes; sinus tachy echo this afternoon Status: Acute (4) Urinary tract infection: Problem details: as above Status: Acute (5) Diabetes mellitus: Problem details: bedside glucose: 334 last night 196 this am A1C 10.8 continue basal & bolus with accuchecks Status: Acute (6) Electrolyte abnormality: Problem details: low potassium, low platelets, elevated biliruin -- all sepsis related. Status: Acute (7) Cognitive impairment: Problem details: Significant pre-existing cognitive impairment. Will evaluate her ability to manage her medical problems while she is here. Status: Acute (8) Morbid obesity: Problem details: Appears to be somewhat physically disabled due to morbid obesity Status: Acute (9) Elevated LFTs: Problem details: fatty liver; sepsis Status: Acute Subjective Date Seen: 03/17/22 Interval history: Daily Progress Note - Hospital Medicine Day #: 3, s/p 2days of Zosyn, transition this morning to IV Rocephin CC: bacteremic; insulin dep diabetes/hyperglycemia/ weakness, cognitive decline OVERNIGHT UPDATES FROM STAFF & MED, LAB, IMAGING UPDATES patient moved to CCU yesterday am; now on oxygen; troponin increasing, potassium decreasing. on fluids and rec'd bolus for sepsis. lactate is finally normal. ECG reviewed this am. She is awake and talking; able to be standyby 1A to the bathroom with walker. tired; wheezy, feels more SOB this am. sent for CTA. T-max 100.8? Blood pressure is 108 systolic over 65 diastolic, 106/93, 124/82 Persistently tachycardic 116 to 120s Respiratory rate increased 20s and up to 30 Pulse ox dropped into the low to mid 80s this morning with ambulation, 2 L to keep her in the low 90s CBC has peaked, however markedly still elevated C reactive protein is up trending while the procalcitonin is down trending Hemoglobin is stable Platelet count is depressed but stable., baseline was over 200 prior to illness Blood gas is stable. PH is normal, pCO2 is normal Creatinine is down trending from 1.7-1.3 Potassium is mildly depressed Lactate elevation has resolved A1c 10.8 Troponin elevated 0.5, from 0.06 and 0.03 on admission. no chest pain/heaviness. BNP 8500 ECG shows sinus tachy; no ST elevation/depression CTA this am: 1. There is no finding of acute pulmonary embolus. 2. Mild interstitial edema. 3. Bibasilar airspace disease, right greater the left. Small right effusion. Tiny left effusion. The airspace disease could represent atelectasis, aspiration or pneumonia. 4. The lung and pleural findings are new compared to 03/15/2022 blood cultures; urine culture grown ECOLI and 2nd gram neg alison still being identified. Review of Systems: See subjective Cardiac: No new chest pain/pressure/palpitations. Respiratory: feels more wheezy GI: No abdominal bloating Objective:awake in bed; NC o2. alert. Vitals: see above Lungs: exp wheezes noted. Cardiac: S1S2. Disposition/Potential discharge - Likely will return with sister to her home vs short term rehab. Total time is 35 minutes with greater than 50% spent in counseling and coordination of care. . Exam Const: Vital Signs, click to edit/add: Vital Signs - 24 hr 03/16/22 15:00 03/16/22 15:00 03/16/22 16:30 Temperature 98 F Pulse Rate 113 H Pulse Rate [Right] 113 H 111 H Respiratory Rate 20 22 Blood Pressure [Le ft Arm] 114/62 Pulse Oximetry 95 Oxygen Delivery Me thod Room Air Oxygen Flow Rate 03/16/22 20:58 03/16/22 23:31 03/16/22 23:31 Temperature 98.3 F Pulse Rate 122 H Pulse Rate [Right] 122 H 122 H Respiratory Rate 22 Blood Pressure [Le ft Arm] 129/65 Pulse Oximetry 91 Oxygen Delivery Me thod Room Air Oxygen Flow Rate 03/16/22 23:31 03/17/22 03:00 03/17/22 07:00 Temperature 99.3 F 98.6 F 100.8 F H Pulse Rate Pulse Rate [Right] 122 H 109 H 118 H Respiratory Rate 22 22 30 H Blood Pressure [Le ft Arm] 146/69 H 124/82 108/65 Pulse Oximetry 91 90 85 L Oxygen Delivery Me thod Room Air Room Air Room Air Oxygen Flow Rate 03/17/22 11:00 03/17/22 07:37 03/17/22 07:00 Temperature 97.9 F Pulse Rate 113 H Pulse Rate [Right] 116 H 116 H Respiratory Rate 30 H 30 H Blood Pressure [Le ft Arm] 106/93 H Pulse Oximetry 98 Oxygen Delivery Me thod Nasal Cannula Oxygen Flow Rate 2 03/17/22 11:26 Temperature 97.9 F Pulse Rate Pulse Rate [Right] Respiratory Rate Blood Pressure [Le ft Arm] Pulse Oximetry Oxygen Delivery Me thod Oxygen Flow Rate Labs Labs: Laboratory Results - last 24 hr 03/15/22 03/16/22 03/16/22 19:02 07:00 11:26 WBC RBC Hgb Hct MCV MCH MCHC Plt Count VBG pH 7.323 VBG pCO2 36 L VBG pO2 39.9 VBG HCO3 19 L Sodium Potassium Chloride Carbon Dioxide BUN Creatinine Estimated Creat Clear Estimated GFR Glucose Hemoglobin A1c Lactate Calcium Magnesium Total Bilirubin GGT AST ALT Alkaline Phosphatase Troponin I 0.06 H* C-Reactive Protein 20.3 H NT-Pro-B Natriuret Pep Total Protein Albumin Procalcitonin 94.90 H Stl C.difficile Tox PCR St C. diff Tox Epid 027 03/16/22 03/16/22 03/16/22 14:43 16:20 16:20 WBC RBC Hgb Hct MCV MCH MCHC Plt Count VBG pH VBG pCO2 VBG pO2 VBG HCO3 Sodium 133 L Potassium 3.9 Chloride 106 Carbon Dioxide 20 BUN 36 H Creatinine 1.7 H Estimated Creat Clear 31.31 Estimated GFR 36 Glucose 385 H* Hemoglobin A1c Lactate 3.5 H Calcium 7.5 L Magnesium Total Bilirubin 2.6 H GGT AST 38 H ALT 30 Alkaline Phosphatase 154 H Troponin I C-Reactive Protein NT-Pro-B Natriuret Pep Total Protein 5.7 L Albumin 2.6 L Procalcitonin Stl C.difficile Tox PCR Negative St C. diff Tox Epid 027 PRESUMPTIVE NEGATIVE 03/16/22 03/17/22 03/17/22 16:20 05:50 05:50 WBC 22.64 H RBC 4.43 Hgb 12.5 Hct 37.1 MCV 84 MCH 28 MCHC 34 Plt Count 58 L VBG pH VBG pCO2 VBG pO2 VBG HCO3 Sodium 135 Potassium 3.2 L Chloride 107 Carbon Dioxide 22 BUN 36 H Creatinine 1.3 Estimated Creat Clear 40.95 Estimated GFR 50 Glucose 234 H Hemoglobin A1c 10.80 H Lactate Calcium 8.1 L Magnesium 1.8 Total Bilirubin 2.1 H GGT 258 H AST 40 H ALT 32 Alkaline Phosphatase 204 H Troponin I 0.49 H* C-Reactive Protein 22.1 H NT-Pro-B Natriuret Pep 8520 H Total Protein 6.2 Albumin 2.8 L Procalcitonin 45.50 H Stl C.difficile Tox PCR St C. diff Tox Epid 027 03/17/22 05:50 WBC RBC Hgb Hct MCV MCH MCHC Plt Count VBG pH 7.380 VBG pCO2 41 VBG pO2 21.6 L VBG HCO3 24 Sodium Potassium Chloride Carbon Dioxide BUN Creatinine Estimated Creat Clear Estimated GFR Glucose Hemoglobin A1c Lactate 1.8 Calcium Magnesium Total Bilirubin GGT AST ALT Alkaline Phosphatase Troponin I C-Reactive Protein NT-Pro-B Natriuret Pep Total Protein Albumin Procalcitonin Stl C.difficile Tox PCR St C. diff Tox Epid 027
[2022-03-17] MEDS: cefTRIAXone 2 GM in 0.9 % SODIUM CHLORIDE Mini-bag 100 ML IVPB (12:34)
[2022-03-17] MEDS: PERFLUTREN LIPID MICROSPHERES 2 ML VIAL IV (13:30)
[2022-03-17 14:13] LABS: Appearance Urine Cloudy (Clear); Bilirubin Urine Negative (Negative); Blood Urine 3+ (Negative); Color Urine Amber (Yellow); Glucose Urine Negative (Negative); Ketones Urine Negative (Negative); Protein Urine 2+ (Negative); Urobilinogen Urine 0.2 (0.2-1.0)
[2022-03-17 14:14] LABS: Amorphous Sediment Urine Few; Bacteria Urine Few; Leukocyte Esterase Urine Trace (Negative); Nitrite Urine Negative (Negative); RBC Urine 50-100 (0-2); Squamous Epithelial Cell Urine Moderate (None-Few)
[2022-03-17] MEDS: LACTATED RINGERS 1000 ML 1,000 ML 125 ML IV ×2 (15:53→20:17)
--- NOTE | 2022-03-17 17:18 | PC.NURSE ---
End of shift-- Very pleasant and cooperative, alert and oriented baseline developmentally delayed patient. She c/o a mild headache today that resolved with Tylenol and denied any other pain. VSS. B/Ps soft today at 100s/50s and pt is tachycardic with HR 100-120, tachypneic with RR 24-30, and highest temp today 100.8F. SPO2 noted to be as low as 84% on RA today. O2 applied at 1L per n.c. and O2 sats maintained >90% on 1L per n.c. LS clear but diminished. Telemetry shows sinus tachycardia. She denied nausea and ate 75-100% of a regular diet. No BMs today. Pt is up to the BR with assist of 1, belt and walker and tolerated it fair. Pt has voided small amounts of blood tinged dustin urine today very frequently and is occasionally incontinent. Report to oncoming shift.
[2022-03-17] MEDS: ATORVASTATIN CALCIUM 40 MG TABLET PO (20:17)
[2022-03-18] VITALS (13 sets, daily range): BP systolic 109–165; BP diastolic 53–80; PULSE 0–120; RESP 16–20; TEMP 36.2–37.3; O2SAT 91–97
[2022-03-18] MEDS: MELATONIN 3 MG TABLET PO (00:07)
[2022-03-18] MEDS: ACETAMINOPHEN 325 MG TABLET 650 MG PO (00:07)
[2022-03-18] MEDS: ALBUTEROL SULFATE 2.5 MG/3 ML VIAL.NEB NEB ×2 (02:06→19:41)
[2022-03-18] MEDS: LACTATED RINGERS 1000 ML 1,000 ML 125 ML IV (03:53)
[2022-03-18] MEDS: IPRAT-ALBUT 0.5-2.5 MG/3 ML NEB 1 NEB IH ×4 (03:53→20:59)
--- NOTE | 2022-03-18 05:46 | PC.NURSE ---
Shift note: The pt has been pleasant and cooperative. She has been denying chest pain and other distress throughout the night. Mild wheezy noted- PRN Albuterol neb was given with a good relief. The pt has been on 1L of oxygen to maintain Spo2 in the 90s. Hr has been 100-118 throughout the night, this Am in the mid to upper 90s. Denied chest pain and other distress. Mild short of breath with exertion and weakness noted. No fever noted. Denied urinary symptoms this shift; incontinent of small urine in the brief.
[2022-03-18 06:05] LABS: HCO3 VBG 25 mmol/L (21-28); Ionized Calcium* 1.13 mmol/L (1.11-1.30); PCO2 VBG 39 mmHG (40-50); PO2 VBG 28.9 mmHG (25-47); pH VBG 7.409 (7.32-7.43)
[2022-03-18 06:15] LABS: Hematocrit 30.9 % (33.0-51.0); Hemoglobin* 10.5 gm/dL (12.0-16.0); Mean Corpuscular HGB Conc 34 gm/dL (32-36); Mean Corpuscular Hemoglobin 28 pg (26-34); Mean Corpuscular Volume 83 fL (80-100); Platelet Count* 57 K/uL (140-440); Red Blood Count 3.74 m/uL (4.00-5.20); White Blood Count* 18.17 K/uL (4.50-11.00)
[2022-03-18 06:21] LABS: Slide Review Reflex No
[2022-03-18 06:26] LABS: Albumin* 2.6 g/dL (3.3-5.0); Chloride* 111 mmol/L (96-114)
[2022-03-18 06:27] LABS: Sodium* 138 mmol/L (135-149)
[2022-03-18 06:29] LABS: Alkaline Phosphatase* 244 U/L (40-150); Aspartate Amino Transferase* 45 U/L (12-35); Bilirubin Total* 1.3 mg/dL (0.1-1.5); Carbon Dioxide* 22 mmol/L (20-32); Creatinine* 1.1 mg/dL (0.5-1.5); Est. Creatinine Clearance* 48.39; Estimated Glomerular Filt Rate 61 ml/min; Gamma Glutamyl Transpeptidase* 274 U/L (8-55); Total Protein* 5.9 g/dL (6.0-8.3)
[2022-03-18 06:30] LABS: Alanine Aminotransferase* 37 U/L (4-35); Blood Urea Nitrogen* 29 mg/dL (7-30); Glucose* 72 mg/dL (60-115); Magnesium* 1.8 mg/dL (1.5-2.6)
[2022-03-18 06:39] LABS: NT Pro B Type NatriureticPept* 4910 PG/mL (0-125)
[2022-03-18] MEDS: OMEPRAZOLE 20 MG CAPSULE DR PO (06:47)
[2022-03-18 06:59] LABS: C Reactive Protein* 16.5 mg/dL (0.5-1.0); Troponin I* 0.23 ng/mL (0.01-0.04)
[2022-03-18] MEDS: CEFAZOLIN 2 GM in 0.9 % SODIUM CHLORIDE Mini-bag 100 ML IVPB ×3 (08:18→23:24)
[2022-03-18] MEDS: POTASSIUM CHLORIDE 10 MEQ CAPSULE ER 20 MEQ PO ×2 (11:01→18:43)
[2022-03-18] MEDS: NYSTATIN POWDER 1 APPLIC TOPICAL ×2 (11:01→20:51)
[2022-03-18] MEDS: LACTOBACILLUS ACIDOPHILUS 1 TABLET 1 TAB PO ×3 (11:02→18:43)
[2022-03-18] MEDS: ASPIRIN EC 325 MG TABLET PO (11:02)
[2022-03-18 13:19] LABS: Appearance Urine Cloudy (Clear); Color Urine Red (Yellow)
[2022-03-18 13:20] LABS: Bilirubin Urine Negative (Negative); Blood Urine 3+ (Negative); Glucose Urine Negative (Negative); Ketones Urine Negative (Negative); Leukocyte Esterase Urine 1+ (Negative); Nitrite Urine Negative (Negative); Protein Urine 2+ (Negative); RBC Urine 50-100 (0-2); Urobilinogen Urine 0.2 (0.2-1.0)
[2022-03-18 13:21] LABS: Bacteria Urine Few; Squamous Epithelial Cell Urine Few (None-Few)
--- NOTE | 2022-03-18 14:42 | PC.NURSE ---
vu inserted after 6 attempts, continues on 1 L O2, blood sugar this am 52, orange juice given, increased to 89, MD notified and breakfast given. AM insulin held per MD. Vital signs stable and afebrile. Blood sugar at 1300 was 214. Patient ordered lunch and insulin given. Denies pain and no N/V.
--- NOTE | 2022-03-18 15:46 | PM.IMPN1 ---
Progress Note: A&P Assessment and plan (1) Sepsis: Problem details: @ admission: Tachycardic, tachypneic, hypotensive, elevated lactate and elevated white count. Urinary source. Her course has been slow but generally improving. TODAY: remains tachy; +blood cultures, fever curve down trending WBC, lactate, bilirubin all downtrending; platelets decreased but stable. CRP and procalcitonin trending. Mild transaminitis -- all sepsis related. Instead of continuous fluids will give fluid bolus as needed. She is considerably 3rd spacing. adding nebs; oxygen; aerobika/ISP Following blood cultures and urine cultures. Now on IV Ancef after being on Zosyn and Rocephin. Status: Acute (2) Bacteremia: Problem details: gram neg rods in all cultures CCU care Antibiotics and fluid boluses no pressor support currently Status: Acute (3) Demand ischemia: Problem details: trend troponin, treat underlying issues; soft blood pressures; tachy; on telemetry; reviewed ECG no ST segment changes; sinus tachy Echo done Normal LV size, normal global systolic function, normal EF. 60-65%. RV function mildly reduced, body habitus? No significant valvular disease Status: Acute (4) Urinary tract infection: Problem details: as above Status: Acute (5) Diabetes mellitus: Problem details: bedside glucose: Down trending. In fact, I held her Levemir this morning A1C 10.8 continue basal & bolus with accuchecks Status: Acute (6) Electrolyte abnormality: Problem details: Transaminitis, low potassium, low platelets -- all sepsis related. Status: Acute (7) Cognitive impairment: Problem details: Significant pre-existing cognitive impairment. Will evaluate her ability to manage her medical problems while she is here. Status: Acute (8) [place]: Problem details: See notes in our office. unclear if cognitive decline is related to this. Status: Acute (9) Morbid obesity: Problem details: Appears to be somewhat physically disabled due to morbid obesity Status: Acute (10) Elevated LFTs: Problem details: fatty liver; sepsis Status: Acute (11) Thrombocytopenia: Problem details: stable; likely sepsis related; baseline noted in [facility] 200K Status: Acute Subjective Date Seen: 03/18/22 Interval history: Daily Progress Note - Hospital Medicine Day #: 4, s/p 2days of Zosyn s/p 1 day of rocphein, now on IV Ancef. diabetes/hyperglycemia/ weakness, cognitive decline OVERNIGHT UPDATES FROM STAFF & MED, LAB, IMAGING UPDATES patient moved to CCU 03/16; now on oxyge (1-2L NC); actually looks better today. She is a little more interactive. She seems less groggy. We did place a [place] after the renal ultrasound showed a distended bladder with debris. The renal ultrasound showed normal kidneys, normal jets without evidence of obstruction or abscess. However, her blood cultures remain positive likely for the same E coli we have isolated in her previous urine and blood cultures. I did adjust her Rocephin to IV Ancef, I did stop her fluids secondary to 3rd spacing and new oxygen requirement. T-max 99.1? Blood pressures have been vacillating between 118 and 164 systolic and 50s to 80s diastolic Persistently tachycardic but stable, sinus Respiratory rate 18 to 20 Pulse ox 95% on 1 L CBC down trending. Today 18.17 Hemoglobin has drifted down 10.5 Platelet count low but stable in the 50s. PH stable. Mildly depressed potassium at 3.0 Liver enzymes are elevated CRP is down trending. Procalcitonin is down trending. Troponin has peaked and is now down trending. Renal ultrasound from this morning 1. Normal appearing kidneys. 2. Bladder wall thickening again identified. In a female, the most common cause of this appearance is cystitis. A1c 10.8 CTA during this admission: 1. There is no finding of acute pulmonary embolus. 2. Mild interstitial edema. 3. Bibasilar airspace disease, right greater the left. Small right effusion. Tiny left effusion. The airspace disease could represent atelectasis, aspiration or pneumonia. 4. The lung and pleural findings are new compared to 03/15/2022 blood cultures; urine culture growing ECOLI, persistent on 2nd day. Review of Systems: See subjective Cardiac: No new chest pain/pressure/palpitations. Respiratory: feels more wheezy GI: No abdominal bloating Objective:awake in bed; NC o2. alert. Vitals: see above Lungs: exp wheezes noted. Cardiac: S1S2. Peripheral edema noted Weight is up 3.5 kg Disposition/Potential discharge - Likely will return with sister to her home vs short term rehab. Total time is 35 minutes with greater than 50% spent in counseling and coordination of care. . Exam Const: Vital Signs, click to edit/add: Vital Signs - 24 hr 03/17/22 19:00 03/18/22 00:07 03/17/22 23:50 Temperature 99.3 F 99.1 F Pulse Rate Pulse Rate [Right] 118 H Respiratory Rate 32 H 20 Blood Pressure [Ri ght Arm] 165/87 H Pulse Oximetry 94 Oxygen Delivery Me thod Nasal Cannula Oxygen Flow Rate 1 03/17/22 23:50 03/18/22 01:16 03/18/22 02:04 Temperature 99.1 F 97.3 F L Pulse Rate 120 H Pulse Rate [Right] Respiratory Rate 20 Blood Pressure [Ri ght Arm] 165/78 H Pulse Oximetry 93 Oxygen Delivery Me thod Nasal Cannula Oxygen Flow Rate 1 03/18/22 04:00 03/18/22 04:00 03/18/22 07:00 Temperature 97.2 F L 98.1 F Pulse Rate Pulse Rate [Right] 99 0 L 111 H Respiratory Rate 20 20 16 Blood Pressure [Ri ght Arm] 118/53 L 164/80 H Pulse Oximetry 95 95 Oxygen Delivery Me thod Nasal Cannula Nasal Cannula Oxygen Flow Rate 1 1 03/18/22 07:00 03/18/22 12:00 03/18/22 12:00 Temperature 97.8 F Pulse Rate 106 H Pulse Rate [Right] 109 H 109 H Respiratory Rate 18 20 Blood Pressure [Ri ght Arm] 118/71 Pulse Oximetry 95 Oxygen Delivery Me thod Nasal Cannula Oxygen Flow Rate 1 Labs Labs: Laboratory Results - last 24 hr 03/18/22 03/18/22 03/18/22 05:55 05:55 05:56 WBC 18.17 H RBC 3.74 L Hgb 10.5 L Hct 30.9 L MCV 83 MCH 28 MCHC 34 Plt Count 57 L VBG pH 7.409 VBG pCO2 39 L VBG pO2 28.9 VBG HCO3 25 Sodium 138 Potassium 3.0 L Chloride 111 Carbon Dioxide 22 BUN 29 Creatinine 1.1 Estimated Creat Clear 48.39 Estimated GFR 61 Glucose 72 Calcium 8.0 L Ionized Calcium David 1.13 Magnesium 1.8 Total Bilirubin 1.3 GGT 274 H AST 45 H ALT 37 H Alkaline Phosphatase 244 H Troponin I 0.23 H* C-Reactive Protein 16.5 H NT-Pro-B Natriuret Pep 4910 H Total Protein 5.9 L Albumin 2.6 L Procalcitonin 24.70 H Urine Color Urine Appearance Urine pH Ur Specific [place] Urine Protein Urine Glucose (UA) Urine Ketones Urine Blood Urine Nitrite Urine Bilirubin Urine Urobilinogen Ur Leukocyte Esterase Urine RBC Urine WBC Urine WBC Clumps Ur Squamous Epith Cells Urine Bacteria Urine Yeast 03/18/22 12:13 WBC RBC Hgb Hct MCV MCH MCHC Plt Count VBG pH VBG pCO2 VBG pO2 VBG HCO3 Sodium Potassium Chloride Carbon Dioxide BUN Creatinine Estimated Creat Clear Estimated GFR Glucose Calcium Ionized Calcium David Magnesium Total Bilirubin GGT AST ALT Alkaline Phosphatase Troponin I C-Reactive Protein NT-Pro-B Natriuret Pep Total Protein Albumin Procalcitonin Urine Color Red A Urine Appearance Cloudy A Urine pH 6.0 Ur Specific [place] 1.010 Urine Protein 2+ A Urine Glucose (UA) Negative Urine Ketones Negative Urine Blood 3+ A Urine Nitrite Negative Urine Bilirubin Negative Urine Urobilinogen 0.2 Ur Leukocyte Esterase 1+ A Urine RBC 50-100 A Urine WBC 10-25 A Urine WBC Clumps None Ur Squamous Epith Cells Few Urine Bacteria Few A Urine Yeast Few A
--- NOTE | 2022-03-18 20:22 | PC.NURSE ---
Pt did not eat dinner tonight. @ BG was 155. Talked to Hold Sliding scale and give 30u Lev instead of 60u.
[2022-03-18 20:36] LABS: Lab Add On Test New Spec Needed
[2022-03-18] MEDS: ATORVASTATIN CALCIUM 40 MG TABLET PO (20:50)
[2022-03-18] MEDS: NYSTATIN CREAM 30 GM 1 APPLIC TOPICAL (20:51)
[2022-03-19] VITALS (10 sets, daily range): BP systolic 118–168; BP diastolic 55–75; PULSE 88–103; RESP 18–20; TEMP 36.6–37.1; O2SAT 90–96
--- NOTE | 2022-03-19 01:32 | PC.NURSE ---
@ 0130. Pt BG was 105. peanut-butter crackers and milk given for snack.
--- NOTE | 2022-03-19 03:50 | PC.NURSE ---
Pt remained sinus Tach all night. Up A1/SBA with walker. Reporting zero pain. Pt had to be placed on 1L NC overnight while sleeping. LS wheezy. Afebrile. Urine from [place] in color.
[2022-03-19] MEDS: OMEPRAZOLE 20 MG CAPSULE DR PO (06:36)
[2022-03-19 08:15] LABS: HCO3 VBG 24 mmol/L (21-28); Ionized Calcium* 1.11 mmol/L (1.11-1.30); PCO2 VBG 37 mmHG (40-50); PO2 VBG 92.5 mmHG (25-47); pH VBG 7.431 (7.32-7.43)
[2022-03-19 08:20] LABS: Hematocrit 31.1 % (33.0-51.0); Hemoglobin* 10.3 gm/dL (12.0-16.0); Mean Corpuscular HGB Conc 33 gm/dL (32-36); Mean Corpuscular Hemoglobin 28 pg (26-34); Mean Corpuscular Volume 83 fL (80-100); Platelet Count* 62 K/uL (140-440); Red Blood Count 3.74 m/uL (4.00-5.20); White Blood Count* 11.15 K/uL (4.50-11.00)
[2022-03-19 08:22] LABS: Slide Review Reflex No
[2022-03-19 08:55] LABS: Chloride* 110 mmol/L (96-114)
[2022-03-19 08:56] LABS: Albumin* 2.4 g/dL (3.3-5.0); Potassium* 3.9 mmol/L (3.6-5.1); Sodium* 137 mmol/L (135-149)
[2022-03-19 08:58] LABS: Carbon Dioxide* 23 mmol/L (20-32); Est. Creatinine Clearance* 53.23; Estimated Glomerular Filt Rate 69 ml/min
[2022-03-19 08:59] LABS: Alanine Aminotransferase* 27 U/L (4-35); Alkaline Phosphatase* 275 U/L (40-150); Aspartate Amino Transferase* 34 U/L (12-35); Bilirubin Total* 0.9 mg/dL (0.1-1.5); Blood Urea Nitrogen* 26 mg/dL (7-30); Gamma Glutamyl Transpeptidase* 282 U/L (8-55); Glucose* 141 mg/dL (60-115); Total Protein* 5.7 g/dL (6.0-8.3)
[2022-03-19 09:00] LABS: Calcium* 7.8 mg/dL (8.4-10.6); Magnesium* 1.9 mg/dL (1.5-2.6)
[2022-03-19 09:08] LABS: NT Pro B Type NatriureticPept* 1830 PG/mL (0-125)
[2022-03-19 09:17] LABS: C Reactive Protein* 14.4 mg/dL (0.5-1.0); Troponin I* 0.11 ng/mL (0.01-0.04)
[2022-03-19] MEDS: CEFAZOLIN 2 GM in 0.9 % SODIUM CHLORIDE Mini-bag 100 ML IVPB ×3 (09:24→23:39)
--- NOTE | 2022-03-19 09:26 | PM.IMPN1 ---
Progress Note: A&P Assessment and plan (1) Sepsis: Problem details: @ admission: Tachycardic, tachypneic, hypotensive, elevated lactate and elevated white count. Urinary source. Her course has been slow but generally improving. 03/19: Continue ancef; +3rd spacing and hypervolemic on exam; begin diuresis lasix 20 mg IV BID; if hypotensive attempt albumin infusion Status: Acute (2) Bacteremia: Problem details: secondary to Ecoli Status: Acute (3) Urinary tract infection: Problem details: as above Status: Acute Assessment and Plan: 03/19 will attempt to remove vu (4) Thrombocytopenia: Problem details: stable; likely sepsis related; baseline noted in [facility] 200K Status: Acute (5) Diabetes mellitus: Problem details: bedside glucose: Down trending. In fact, I held her Levemir this morning A1C 10.8 continue basal & bolus with accuchecks Status: Acute Assessment and Plan: 03/19; hypoglycemic early AM; decrease levemir: 30 units qam, 20 units qhs, decrease novolog to 30 mg TID WM, continue SSI (6) Elevated LFTs: Problem details: fatty liver; sepsis Status: Acute (7) Demand ischemia: Problem details: trend troponin, treat underlying issues; soft blood pressures; tachy; on telemetry; reviewed ECG no ST segment changes; sinus tachy Echo done Normal LV size, normal global systolic function, normal EF. 60-65%. RV function mildly reduced, body habitus? No significant valvular disease Status: Acute Assessment and Plan: DC daily troponin (8) Peripheral neuropathy: Status: Acute (9) Complex partial epilepsy: Status: Acute (10) Depression: Status: Acute (11) [place]: Problem details: See notes in our office. unclear if cognitive decline is related to this. Status: Acute (12) Morbid obesity: Problem details: Appears to be somewhat physically disabled due to morbid obesity Status: Acute (13) Cognitive impairment: Problem details: Significant pre-existing cognitive impairment. Will evaluate her ability to manage her medical problems while she is here. Status: Acute (14) Electrolyte abnormality: Problem details: Transaminitis, low potassium, low platelets -- all sepsis related. Status: Acute Time Spent With Patient Total time spent: 40 Subjective Date Seen: 03/19/22 Interval history: patient new to me alert and oriented c/o SOB denies chest pain became hypoglycemic last night around 1am had to be given snack has not had breakfast yet Exam Narrative: Exam Narrative: GeN: obese female; no distress HEENT: NCAT EOMI MMM CV: mild tachycardia Lungs: mild wheezing, diminished breath sounds; +crackles Abd: soft, nt, nd Neuro: Alert, oriented; appears at baseline state Ext: 1-2+ pedal edema Const: Vital Signs, click to edit/add: Vital Signs - 24 hr 03/18/22 12:00 03/18/22 12:00 03/18/22 15:00 Temperature 97.8 F Pulse Rate 106 H Pulse Rate [Right] 109 H 109 H Respiratory Rate 18 20 Blood Pressure [Ri ght Arm] 118/71 Pulse Oximetry 95 Oxygen Delivery Me thod Nasal Cannula Oxygen Flow Rate 1 03/18/22 15:00 03/18/22 16:00 03/18/22 19:37 Temperature 98.3 F 97.9 F Pulse Rate Pulse Rate [Right] 109 H 109 H 100 Respiratory Rate 20 20 20 Blood Pressure [Ri ght Arm] 140/76 H 165/79 H Pulse Oximetry 91 95 Oxygen Delivery Me thod Room Air Oxygen Flow Rate 03/18/22 19:47 03/18/22 23:15 03/18/22 23:22 Temperature 98.2 F Pulse Rate 104 H Pulse Rate [Right] 100 103 H Respiratory Rate 20 20 Blood Pressure [Ri ght Arm] 109/64 Pulse Oximetry 97 Oxygen Delivery Me thod Nasal Cannula Oxygen Flow Rate 1 03/18/22 23:39 03/19/22 02:16 03/19/22 04:10 Temperature 98.7 F Pulse Rate Pulse Rate [Right] 103 H 103 H 103 H Respiratory Rate 20 20 Blood Pressure [Ri ght Arm] 127/58 L Pulse Oximetry 94 Oxygen Delivery Me thod Nasal Cannula Oxygen Flow Rate 1 03/19/22 07:00 Temperature Pulse Rate 91 Pulse Rate [Right] Respiratory Rate Blood Pressure [Ri ght Arm] Pulse Oximetry Oxygen Delivery Me thod Oxygen Flow Rate Labs Labs: Laboratory Results - last 24 hr 03/18/22 03/19/22 03/19/22 12:13 07:13 07:13 WBC 11.15 H RBC 3.74 L Hgb 10.3 L Hct 31.1 L MCV 83 MCH 28 MCHC 33 Plt Count 62 L VBG pH VBG pCO2 VBG pO2 VBG HCO3 Sodium 137 Potassium 3.9 Chloride 110 Carbon Dioxide 23 BUN 26 Creatinine 1.0 Estimated Creat Clear 53.23 Estimated GFR 69 Glucose 141 H Calcium 7.8 L Ionized Calcium David Magnesium 1.9 Total Bilirubin 0.9 GGT 282 H AST 34 ALT 27 Alkaline Phosphatase 275 H Troponin I 0.11 H* C-Reactive Protein 14.4 H NT-Pro-B Natriuret Pep 1830 H Total Protein 5.7 L Albumin 2.4 L Procalcitonin 14.60 H Urine Color Red A Urine Appearance Cloudy A Urine pH 6.0 Ur Specific [place] 1.010 Urine Protein 2+ A Urine Glucose (UA) Negative Urine Ketones Negative Urine Blood 3+ A Urine Nitrite Negative Urine Bilirubin Negative Urine Urobilinogen 0.2 Ur Leukocyte Esterase 1+ A Urine RBC 50-100 A Urine WBC 10-25 A Urine WBC Clumps None Ur Squamous Epith Cells Few Urine Bacteria Few A Urine Yeast Few A 03/19/22 07:13 WBC RBC Hgb Hct MCV MCH MCHC Plt Count VBG pH 7.431 H VBG pCO2 37 L VBG pO2 92.5 H VBG HCO3 24 Sodium Potassium Chloride Carbon Dioxide BUN Creatinine Estimated Creat Clear Estimated GFR Glucose Calcium Ionized Calcium David 1.11 Magnesium Total Bilirubin GGT AST ALT Alkaline Phosphatase Troponin I C-Reactive Protein NT-Pro-B Natriuret Pep Total Protein Albumin Procalcitonin Urine Color Urine Appearance Urine pH Ur Specific [place] Urine Protein Urine Glucose (UA) Urine Ketones Urine Blood Urine Nitrite Urine Bilirubin Urine Urobilinogen Ur Leukocyte Esterase Urine RBC Urine WBC Urine WBC Clumps Ur Squamous Epith Cells Urine Bacteria Urine Yeast
[2022-03-19] MEDS: ASPIRIN EC 325 MG TABLET PO (09:29)
[2022-03-19] MEDS: LACTOBACILLUS ACIDOPHILUS 1 TABLET 1 TAB PO ×2 (09:29→14:59)
[2022-03-19] MEDS: POTASSIUM CHLORIDE 10 MEQ CAPSULE ER 20 MEQ PO ×2 (09:29→17:07)
[2022-03-19] MEDS: IPRAT-ALBUT 0.5-2.5 MG/3 ML NEB 1 NEB IH ×3 (09:29→21:03)
[2022-03-19] MEDS: NYSTATIN CREAM 30 GM 1 APPLIC TOPICAL ×3 (09:30→21:02)
[2022-03-19] MEDS: FUROSEMIDE 10 MG/ML inj 20 MG IVP ×2 (10:29→21:02)
--- NOTE | 2022-03-19 18:03 | PC.NURSE ---
Patient received IV lasix today. Had 1700mL urine out for day shift. Pt still has an audible wheeze present intermittently throughout the day. Scheduled nebs given. Pt's oxygen saturations remain above 90% on RA. Up in for walk in the [place] today x2. Sister in the room visiting from [place] - she is very loving and attentive.
[2022-03-19] MEDS: MELATONIN 3 MG TABLET PO (21:02)
[2022-03-19] MEDS: ATORVASTATIN CALCIUM 40 MG TABLET PO ×2 (21:02→21:04)
[2022-03-19] MEDS: NYSTATIN POWDER 1 APPLIC TOPICAL (21:14)
[2022-03-20] VITALS (9 sets, daily range): BP systolic 114–136; BP diastolic 59–68; PULSE 78–97; RESP 18; TEMP 36.5–36.7; O2SAT 93–99
--- NOTE | 2022-03-20 04:42 | PC.NURSE ---
Pt rested well this night. Voiding via [place]. VS unremarkable. Reporting zero pain. Pt appears to be much stronger than previous night. Afebrile.
[2022-03-20] MEDS: OMEPRAZOLE 20 MG CAPSULE DR PO (06:06)
[2022-03-20 06:53] LABS: Hematocrit 31.5 % (33.0-51.0); Hemoglobin* 10.4 gm/dL (12.0-16.0); Mean Corpuscular HGB Conc 33 gm/dL (32-36); Mean Corpuscular Hemoglobin 28 pg (26-34); Mean Corpuscular Volume 84 fL (80-100); Platelet Count* 90 K/uL (140-440); Red Blood Count 3.75 m/uL (4.00-5.20); White Blood Count* 11.15 K/uL (4.50-11.00)
[2022-03-20 07:05] LABS: Albumin* 2.6 g/dL (3.3-5.0); Chloride* 110 mmol/L (96-114); Potassium* 3.5 mmol/L (3.6-5.1); Sodium* 139 mmol/L (135-149)
[2022-03-20 07:07] LABS: Est. Creatinine Clearance* 53.23; Estimated Glomerular Filt Rate 69 ml/min
[2022-03-20 07:08] LABS: Alkaline Phosphatase* 329 U/L (40-150); Aspartate Amino Transferase* 26 U/L (12-35); Bilirubin Total* 0.8 mg/dL (0.1-1.5); Calcium* 7.8 mg/dL (8.4-10.6); Carbon Dioxide* 26 mmol/L (20-32); Gamma Glutamyl Transpeptidase* 323 U/L (8-55); Glucose* 100 mg/dL (60-115); Magnesium* 1.9 mg/dL (1.5-2.6); Slide Review Reflex No; Total Protein* 5.9 g/dL (6.0-8.3)
[2022-03-20 07:09] LABS: Alanine Aminotransferase* 19 U/L (4-35)
[2022-03-20 07:24] LABS: Blood Urea Nitrogen* 24 mg/dL (7-30)
--- NOTE | 2022-03-20 09:12 | PM.IMPN1 ---
Progress Note: A&P Assessment and plan (1) Sepsis: Problem details: @ admission: Tachycardic, tachypneic, hypotensive, elevated lactate and elevated white count. Urinary source. Her course has been slow but generally improving. 03/19: Continue ancef; +3rd spacing and hypervolemic on exam; begin diuresis lasix 20 mg IV BID; if hypotensive attempt albumin infusion 03/20: continue ancef; continue lasix Status: Acute Assessment and Plan: Secondary to Ecoli Bacteremia (2) Urinary tract infection: Problem details: as above Status: Acute (3) Bacteremia: Problem details: secondary to Ecoli Status: Acute (4) Electrolyte abnormality: Problem details: Transaminitis, low potassium, low platelets -- all sepsis related. Status: Acute Assessment and Plan: 03/20; RUQ US; continue electrolyte replacement (5) Diabetes mellitus: Problem details: bedside glucose: Down trending. In fact, I held her Levemir this morning A1C 10.8 continue basal & bolus with accuchecks Status: Acute Assessment and Plan: 03/20: increase AM levemir to 35 units; prandial novolog from 30 units TID to 40 units TID; continue 20 units levemir qhs (6) Thrombocytopenia: Problem details: stable; likely sepsis related; baseline noted in [facility] 200K Status: Acute (7) Elevated LFTs: Problem details: fatty liver; sepsis Status: Acute Assessment and Plan: 03/20: RUQ US (8) Demand ischemia: Problem details: trend troponin, treat underlying issues; soft blood pressures; tachy; on telemetry; reviewed ECG no ST segment changes; sinus tachy Echo done Normal LV size, normal global systolic function, normal EF. 60-65%. RV function mildly reduced, body habitus? No significant valvular disease Status: Acute (9) Cognitive impairment: Problem details: Significant pre-existing cognitive impairment. Will evaluate her ability to manage her medical problems while she is here. Status: Acute (10) Morbid obesity: Problem details: Appears to be somewhat physically disabled due to morbid obesity Status: Acute Assessment and Plan: 03/20: recommend outpatient sleep study; likely has ACE Plan Disposition: likely will benefit from STR; possible discharge 1-2 days Time Spent With Patient Total time spent: 30 Subjective Date Seen: 03/20/22 Interval history: Patient in bed denies SOB still on supplemental oxygen denies nausea, vomiting no hypoglycemic episodes Exam Narrative: Exam Narrative: Gen: no acute distress HEENT: NCAT EOMI MMM CV RRR s1 s2 Lungs: diminished; poor inspiratory effort Abd: obese, soft, nt Neuro: Alert, oriented; appears at baseline state ; [place] in place Const: Vital Signs, click to edit/add: Vital Signs - 24 hr 03/19/22 11:00 03/19/22 15:00 03/19/22 15:00 Temperature 98.1 F Pulse Rate 91 Pulse Rate [Right] 94 94 Respiratory Rate 20 20 Blood Pressure [Ri ght Arm] 136/74 Pulse Oximetry 93 Oxygen Delivery Me thod Room Air Oxygen Flow Rate 03/19/22 15:00 03/19/22 19:51 03/19/22 22:45 Temperature 98.2 F 98.4 F Pulse Rate 97 Pulse Rate [Right] 88 95 Respiratory Rate 20 18 Blood Pressure [Ri ght Arm] 146/63 H 161/72 H Pulse Oximetry 96 96 Oxygen Delivery Me thod Room Air Room Air Oxygen Flow Rate 03/19/22 22:48 03/19/22 23:37 03/20/22 02:51 Temperature 97.9 F 97.9 F Pulse Rate Pulse Rate [Right] 95 97 97 Respiratory Rate 18 18 18 Blood Pressure [Ri ght Arm] 168/75 H 119/59 L Pulse Oximetry 90 95 Oxygen Delivery Me thod Room Air Nasal Cannula Oxygen Flow Rate 1 Labs Labs: Laboratory Results - last 24 hr 03/19/22 03/20/22 03/20/22 07:13 05:54 05:54 WBC 11.15 H RBC 3.75 L Hgb 10.4 L Hct 31.5 L MCV 84 MCH 28 MCHC 33 Plt Count 90 L Sodium 137 139 Potassium 3.9 3.5 L Chloride 110 110 Carbon Dioxide 23 26 BUN 26 24 Creatinine 1.0 1.0 Estimated Creat Clear 53.23 53.23 Estimated GFR 69 69 Glucose 141 H 100 Calcium 7.8 L 7.8 L Magnesium 1.9 1.9 Total Bilirubin 0.9 0.8 GGT 282 H 323 H AST 34 26 ALT 27 19 Alkaline Phosphatase 275 H 329 H Troponin I 0.11 H* C-Reactive Protein 14.4 H NT-Pro-B Natriuret Pep 1830 H Total Protein 5.7 L 5.9 L Albumin 2.4 L 2.6 L Procalcitonin 14.60 H
--- NOTE | 2022-03-20 09:17 | CRLHL7_ITS ---
For Patients: As a result of the Century Cures Act, medical imaging exams and procedure reports are released immediately into your electronic medical record. You may view this report before your referring provider. If you have questions, please contact your health care provider. INDICATION: Abnormal LFTs. COMPARISON : CT 17 March 2022. FINDINGS: Transabdominal imaging. Visualized pancreas is normal. Aorta is non aneurysmal. Somewhat coarse echogenic liver. Contracted gallbladder. Common bile duct 5 mm at the chucho hepatis. No sonographic Campos`s sign reported. The right kidney sonographically normal. IMPRESSION: Fatty liver. Contracted gallbladder. Dictated by Nabil Castro MD @ 03/20/2022 10:52:53 AM (Electronically Signed)
[2022-03-20] MEDS: CEFAZOLIN 2 GM in 0.9 % SODIUM CHLORIDE Mini-bag 100 ML IVPB (09:46)
[2022-03-20] MEDS: LACTOBACILLUS ACIDOPHILUS 1 TABLET 1 TAB PO ×2 (10:17→17:29)
[2022-03-20] MEDS: POTASSIUM CHLORIDE 10 MEQ CAPSULE ER 20 MEQ PO ×2 (10:17→17:29)
[2022-03-20] MEDS: ASPIRIN EC 325 MG TABLET PO (10:18)
[2022-03-20] MEDS: FUROSEMIDE 10 MG/ML inj 20 MG IVP ×2 (10:18→15:34)
[2022-03-20] MEDS: NYSTATIN POWDER 1 APPLIC TOPICAL ×2 (10:19→21:55)
--- NOTE | 2022-03-20 10:20 | CRLHL7_ITS ---
For Patients: As a result of the Century Cures Act, medical imaging exams and procedure reports are released immediately into your electronic medical record. You may view this report before your referring provider. If you have questions, please contact your health care provider. INDICATION: Hypoxia, possible pleural effusion TECHNIQUE: Chest 2 views. COMPARISON: CT scan of the chest dated 03/17/2022 FINDINGS: The heart size is in the upper range of normal. Central vascular markings are mildly prominent. There are small bilateral pleural effusions most evident in the posterior costophrenic angle regions on the lateral view. Mild bibasilar infiltrate/atelectasis is present (right worse than left). IMPRESSION: 1. Small bilateral pleural effusions in the posterior costophrenic angle regions. 2. Low lung volumes with mild bibasilar atelectasis/infiltrates. Dictated by Doni Albarran MD @ 03/20/2022 12:17:22 PM (Electronically Signed)
--- NOTE | 2022-03-20 10:39 | PM.GSCN ---
History of Present Illness Consult details Date Seen: 03/20/22 Consult date: 03/20/22 Narrative: Asked to see patient in consultation for abnormal abdominal ultrasound , which demonstrated a contracted gallbladder. Patient was initially admitted to the hospital 5 days earlier for sepsis. A workup was performed with evidence of urinary tract infection. Patient was started on IV antibiotics and clinically she has been improving. She has had abnormal liver enzymes, which was thought to be secondary to her sepsis. Her blood cultures have grown out E coli. Patient denies any abdominal pain during her hospital stay. She has been tolerating a regular diet without difficulty. She has never had abdominal surgery before and denies any issues with her gallbladder. No reported nausea or vomiting. No fevers. Review of Systems Status of ROS: Reports: 6 or more systems reviewed and unremarkable except as noted in History and below [facility] Medical History Cognitive impairment Complex partial epilepsy Crohn's disease Depression Diabetes mellitus Dyslipidemia Hyperlipidemia Hypersomnia Morbid obesity [place] Peripheral neuropathy Urinary incontinence, urge Family History Mother Diabetes Sister Diabetes Social History Narrative: She lives in [place] with her sister and her sister's family. Sister is Nicci Davila. 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 Code status is full. She does not smoke. She rarely drinks alcohol. She does not work outside the home. Her sister sets up her medications for her Highest level of school completed/degree received: Bachelor's degree Smoking Status: Never smoker How often do you have a drink containing alcohol: never AUDIT-C Alcohol total score: 0 Non-prescribed substance use: denies use Caffeine: Yes (occasionally) service: No Meds Home Medications and Allergies Home Medications Medication Instructions Recorded Confirmed Type aspirin 81 mg tablet,delayed 81 mg PO DAILY 03/16/22 03/16/22 History release (Adult Aspirin Regimen) atorvastatin 20 mg tablet 40 mg PO DAILY 03/16/22 03/16/22 History cholecalciferol (vitamin D3) 50 50 mcg PO DAILY 03/16/22 03/16/22 History mcg (2,000 unit) capsule clotrimazole-betamethasone 1 1 applic topical BID 03/16/22 03/16/22 History %-0.05 % topical cream insulin glargine 100 unit/mL (3 100 unit subcut DAILY 03/16/22 03/16/22 History mL) subcutaneous pen (Lantus Solostar U-100 Insulin) insulin lispro 100 unit/mL 40 unit subcut TIDWM 03/16/22 03/16/22 History subcutaneous pen liraglutide 0.6 mg/0.1 mL (18 mg/3 0.6 mg subcut DAILY 03/16/22 03/16/22 History mL) subcutaneous pen injector (Victoza 3-Lacho) oxybutynin chloride 5 mg 5 mg PO HS 03/16/22 03/16/22 History tablet,extended release 24 hr Allergies Allergy/AdvReac Type Severity Reaction Status Date / Time metformin AdvReac Unknown Diarrhea Verified 03/15/22 20:30 Exam Narrative: Exam Narrative: General: Alert and oriented, no acute distress. Sitting in a chair and eating lunch respiratory: Equal breath rise bilaterally, maintained on room air CV: Regular rhythm rate, well perfused Abdomen: Obese abdomen, soft and nontender. Negative Campos sign. No previous surgical incisions. Some noted anasarca of the abdominal wall and edema to bilateral lower extremity. Const: Vital Signs, click to edit/add: Vital Signs - 24 hr 03/19/22 11:00 03/19/22 15:00 03/19/22 15:00 Temperature 98.1 F Pulse Rate 91 Pulse Rate [Right] 94 94 Respiratory Rate 20 20 Blood Pressure [Ri t Arm] 136/74 Pulse Oximetry 93 Oxygen Delivery Me thod Room Air Oxygen Flow Rate 03/19/22 15:00 03/19/22 19:51 03/19/22 22:45 Temperature 98.2 F 98.4 F Pulse Rate 97 Pulse Rate [Right] 88 95 Respiratory Rate 20 18 Blood Pressure [Ri ght Arm] 146/63 H 161/72 H Pulse Oximetry 96 96 Oxygen Delivery Me thod Room Air Room Air Oxygen Flow Rate 03/19/22 22:48 03/19/22 23:37 03/20/22 02:51 Temperature 97.9 F 97.9 F Pulse Rate Pulse Rate [Right] 95 97 97 Respiratory Rate 18 18 18 Blood Pressure [Ri ght Arm] 168/75 H 119/59 L Pulse Oximetry 90 95 Oxygen Delivery Me thod Room Air Nasal Cannula Oxygen Flow Rate 1 Results Labs Labs: Abnormal lab results 03/20/22 03/20/22 Range/Units 05:54 05:54 WBC 11.15 H (4.50-11.00) K/uL RBC 3.75 L (4.00-5.20) m/uL Hgb 10.4 L (12.0-16.0) gm/dL Hct 31.5 L (33.0-51.0) % Plt Count 90 L (140-440) K/uL Potassium 3.5 L (3.6-5.1) mmol/L Calcium 7.8 L (8.4-10.6) mg/dL GGT 323 H (8-55) U/L Alkaline Phosphatase 329 H (40-150) U/L Total Protein 5.9 L (6.0-8.3) g/dL Albumin 2.6 L (3.3-5.0) g/dL Diabetes panel 03/20/22 Range/Units 05:54 Sodium 139 (135-149) mmol/L Potassium 3.5 L (3.6-5.1) mmol/L Chloride 110 (96-114) mmol/L Carbon Dioxide 26 (20-32) mmol/L BUN 24 (7-30) mg/dL Creatinine 1.0 (0.5-1.5) mg/dL Glucose 100 (60-115) mg/dL Calcium 7.8 L (8.4-10.6) mg/dL AST 26 (12-35) U/L ALT 19 (4-35) U/L Alkaline Phosphatase 329 H (40-150) U/L Total Protein 5.9 L (6.0-8.3) g/dL Albumin 2.6 L (3.3-5.0) g/dL Calcium panel 03/20/22 Range/Units 05:54 Calcium 7.8 L (8.4-10.6) mg/dL Albumin 2.6 L (3.3-5.0) g/dL Pituitary panel 03/20/22 Range/Units 05:54 Sodium 139 (135-149) mmol/L Potassium 3.5 L (3.6-5.1) mmol/L Chloride 110 (96-114) mmol/L Carbon Dioxide 26 (20-32) mmol/L BUN 24 (7-30) mg/dL Creatinine 1.0 (0.5-1.5) mg/dL Glucose 100 (60-115) mg/dL Calcium 7.8 L (8.4-10.6) mg/dL Adrenal panel 03/20/22 Range/Units 05:54 Sodium 139 (135-149) mmol/L Potassium 3.5 L (3.6-5.1) mmol/L Chloride 110 (96-114) mmol/L Carbon Dioxide 26 (20-32) mmol/L BUN 24 (7-30) mg/dL Creatinine 1.0 (0.5-1.5) mg/dL Glucose 100 (60-115) mg/dL Calcium 7.8 L (8.4-10.6) mg/dL Total Bilirubin 0.8 (0.1-1.5) mg/dL AST 26 (12-35) U/L ALT 19 (4-35) U/L Alkaline Phosphatase 329 H (40-150) U/L Total Protein 5.9 L (6.0-8.3) g/dL Albumin 2.6 L (3.3-5.0) g/dL All other labs normal. Imaging Abdomen CT scan report/results: report reviewed and image reviewed Abdominal ultrasound report/results: report reviewed and image reviewed Assessment and Plan Assessment and plan (1) Elevated LFTs: Problem comment: fatty liver; sepsis Status: Acute Plan Patient is a 51-year-old female, currently hospitalized for bacteremia with evidence of urinary tract infection. She is currently on hospital day number 5. She has been afebrile since admission and pressures stable. On reviewing her labs her leukocytosis is trending down ( WBC 11.5), hemoglobin is stable and thrombocytopenia improving (90). her liver enzymes have been elevated throughout her stay, but bilirubin has normalized and ALT/ AST normalized. Her alkaline phosphatase remains elevated (329). An abdominal ultrasound was obtained which demonstrated a contracted gallbladder and borderline wall thickening ( 5 mm) no evidence of pericholecystic fluid and no stones visualized. On initial CT scan from 03/15, gallbladder appears normal with no significant distension or surrounding inflammation and no stones identified. On exam her abdomen is benign, although with uncontrolled diabetes this can affect the sensitivity of the patient's exam due to associated neuropathy. Her elevated liver panel, could be secondary to her severe bacteremia however gallbladder disease does remain in the differential. Since admission she has been trending towards normalization of her liver panel and WBC. At this time she is nontoxic in appearance and afebrile with vital signs stable. Would recommend broadening her antibiotics, given the presence of E coli bacteremia and continuing with medical management at this time. Could consider a HIDA scan, to definitively rule out the gallbladder, although will hold off at this time. - Continue IV antibiotics, will broaden to Zosyn - repeat LFTs in the morning Will continue to follow. Appreciate the consultation, please call with any acute clinical changes, questions or concerns.
[2022-03-20] MEDS: IPRAT-ALBUT 0.5-2.5 MG/3 ML NEB 1 NEB IH (11:18)
[2022-03-20] MEDS: PIPERACILLIN/TAZOBACTAM 3.375 GM in 0.9 % SODIUM CHLORIDE Mini-bag 100 ML IVPB ×3 (11:20→22:39)
[2022-03-20] MEDS: LOPERAMIDE HCL 2 MG CAPSULE PO ×2 (15:34→21:50)
--- NOTE | 2022-03-20 18:47 | PC.NURSE ---
Shift Summary: Román discontinued. Patient up to use the BR frequently. Having diarrhea throughout the afternoon. Imodium given PRN. Scheduled nebs given. Patient states that her breathing feels better today.
[2022-03-20] MEDS: ACETAMINOPHEN 325 MG TABLET 650 MG PO (21:51)
[2022-03-20] MEDS: MELATONIN 3 MG TABLET PO (21:52)
[2022-03-20] MEDS: NYSTATIN CREAM 30 GM 1 APPLIC TOPICAL (21:55)
[2022-03-21] VITALS (7 sets, daily range): BP systolic 108–137; BP diastolic 45–78; PULSE 76–84; RESP 16–30; TEMP 36.3–36.8; O2SAT 94–99
[2022-03-21] MEDS: PIPERACILLIN/TAZOBACTAM 3.375 GM in 0.9 % SODIUM CHLORIDE Mini-bag 100 ML IVPB ×4 (04:37→23:30)
--- NOTE | 2022-03-21 04:40 | PC.NURSE ---
Pt much improved from previous nights. Walking better to BR. No longer LS wheeze. Afebrile. HR NSR. Reporting zero pain.
[2022-03-21] MEDS: OMEPRAZOLE 20 MG CAPSULE DR PO (06:10)
[2022-03-21 06:56] LABS: Hematocrit 32.3 % (33.0-51.0); Hemoglobin* 10.6 gm/dL (12.0-16.0); Mean Corpuscular HGB Conc 33 gm/dL (32-36); Mean Corpuscular Hemoglobin 28 pg (26-34); Mean Corpuscular Volume 85 fL (80-100); Platelet Count* 127 K/uL (140-440); Red Blood Count 3.79 m/uL (4.00-5.20); White Blood Count* 10.67 K/uL (4.50-11.00)
[2022-03-21 07:00] LABS: Slide Review Reflex No
[2022-03-21 07:07] LABS: Albumin* 2.7 g/dL (3.3-5.0); Chloride* 105 mmol/L (96-114)
[2022-03-21 07:08] LABS: Potassium* 3.9 mmol/L (3.6-5.1); Sodium* 138 mmol/L (135-149)
[2022-03-21 07:10] LABS: Alkaline Phosphatase* 444 U/L (40-150); Aspartate Amino Transferase* 46 U/L (12-35); Bilirubin Total* 0.9 mg/dL (0.1-1.5); Blood Urea Nitrogen* 24 mg/dL (7-30); Carbon Dioxide* 28 mmol/L (20-32); Creatinine* 1.1 mg/dL (0.5-1.5); Est. Creatinine Clearance* 48.39; Estimated Glomerular Filt Rate 61 ml/min; Gamma Glutamyl Transpeptidase* 447 U/L (8-55); Glucose* 128 mg/dL (60-115); Total Protein* 6.1 g/dL (6.0-8.3)
[2022-03-21 07:11] LABS: Alanine Aminotransferase* 23 U/L (4-35); Calcium* 7.7 mg/dL (8.4-10.6); Magnesium* 1.8 mg/dL (1.5-2.6)
[2022-03-21] MEDS: POTASSIUM CHLORIDE 10 MEQ CAPSULE ER 20 MEQ PO ×2 (09:28→19:20)
[2022-03-21] MEDS: ASPIRIN EC 325 MG TABLET PO (09:28)
[2022-03-21] MEDS: NYSTATIN POWDER 1 APPLIC TOPICAL ×2 (09:29→21:21)
[2022-03-21] MEDS: MAGNESIUM OXIDE 400 MG TABLET PO (09:29)
[2022-03-21] MEDS: NYSTATIN CREAM 30 GM 1 APPLIC TOPICAL ×3 (09:29→21:21)
[2022-03-21] MEDS: LACTOBACILLUS ACIDOPHILUS 1 TABLET 1 TAB PO ×3 (09:29→19:19)
--- NOTE | 2022-03-21 10:37 | P.IMPN_ITS ---
Progress Note: A&P Assessment and plan (1) Sepsis: Problem details: @ admission: Tachycardic, tachypneic, hypotensive, elevated lactate and elevated white count. Urinary source. Her course has been slow but generally improving. 03/19: Continue ancef; +3rd spacing and hypervolemic on exam; begin diuresis lasix 20 mg IV BID; if hypotensive attempt albumin infusion 03/20: continue ancef; continue lasix 03/21: transitioned to zosyn on 03/20; stop lasix; switch to PO antibiotics at discharge Status: Acute (2) Urinary tract infection: Problem details: as above Status: Acute (3) Bacteremia: Problem details: secondary to Ecoli Status: Acute (4) Electrolyte abnormality: Problem details: Transaminitis, low potassium, low platelets -- all sepsis related. Status: Acute (5) Diabetes mellitus: Problem details: bedside glucose: A1C 10.8 continue basal & bolus with accuchecks Status: Acute Assessment and Plan: 03/20: increase AM levemir to 35 units; prandial novolog from 30 units TID to 40 units TID; continue 20 units levemir qhs 03/21: increase AM levemir to 40 units, prandial novolog 45 units TID, NPO midnight decrease levemir to 10 units qhs (6) Thrombocytopenia: Problem details: stable; likely sepsis related; baseline noted in [facility] 200K Status: Acute Assessment and Plan: 03/21: Platelets improving (7) Elevated LFTs: Problem details: fatty liver; sepsis Status: Acute Assessment and Plan: 03/21: RUQ US showed contracted GB, Surgery consulted, HIDA Scan tomorrow AM, trend LFTs (8) Demand ischemia: Problem details: trend troponin, treat underlying issues; soft blood pressures; tachy; on t elemetry; reviewed ECG no ST segment changes; sinus tachy Echo done Normal LV size, normal global systolic function, normal EF. 60-65%. RV function mildly reduced, body habitus? No significant valvular disease Status: Acute (9) Cognitive impairment: Problem details: Significant pre-existing cognitive impairment. Will evaluate her ability to manage her medical problems while she is here. Status: Acute (10) Morbid obesity: Problem details: Appears to be somewhat physically disabled due to morbid obesity Status: Acute Assessment and Plan: 03/21: recommend outpatient sleep study Plan 03/21: Surgery consulted given abnormal LFTs, and contracted GB, npo midnight, HIDA scan tomorrow, possible lap [facility] tomorrow Discharge plan: will need Short term rehab once medically stable for discharge Family communication via telephone with patient's sister Nicci today Time Spent With Patient Total time spent: 40 minutes Subjective Date Seen: 03/21/22 Interval history: patient more alert today I spoke with sister megan patient denies chest pain, sob weaned off supplemental oxygen Exam Narrative: Exam Narrative: Gen: no acute distress HEENT: NCAT EOMI MMM CV: RRR s1 s2 Lungs: CTAB Abd: soft, nt, nd Neuro: alert, oriented; nonfocal screening exm Const: Vital Signs, click to edit/add: Vital Signs - 24 hr 03/20/22 11:00 03/20/22 15:00 03/20/22 15:00 Temperature 98 F Pulse Rate 78 Pulse Rate [Right Radial] Pulse Rate [Right] 78 81 Respiratory Rate 18 18 Blood Pressure [Ri ght Arm] 115/61 Pulse Oximetry 93 97 Oxygen Delivery Me thod Room Air 03/20/22 15:00 03/20/22 20:06 03/20/22 21:51 Temperature 97.7 F 97.8 F Pulse Rate Pulse Rate [Right Radial] Pulse Rate [Right] 81 86 Respiratory Rate 18 18 Blood Pressure [Ri ght Arm] 136/67 Pulse Oximetry 99 Oxygen Delivery Me thod Room Air 03/20/22 22:47 03/20/22 22:58 03/20/22 23:52 Temperature 97.8 F Pulse Rate 80 Pulse Rate [Right Radial] Pulse Rate [Right] 95 95 Respiratory Rate 18 18 Blood Pressure [Ri ght Arm] 132/67 Pulse Oximetry 99 Oxygen Delivery Me thod Room Air 03/21/22 02:13 03/21/22 07:31 03/21/22 08:39 Temperature 97.8 F 97.9 F Pulse Rate 76 Pulse Rate [Right Radial] 80 Pulse Rate [Right] 84 Respiratory Rate 16 18 Blood Pressure [Ri ght Arm] 137/78 130/49 L Pulse Oximetry 98 94 Oxygen Delivery Me thod Room Air Room Air Labs Labs: Laboratory Results - last 24 hr 03/21/22 03/21/22 06:05 06:05 WBC 10.67 RBC 3.79 L Hgb 10.6 L Hct 32.3 L MCV 85 MCH 28 MCHC 33 Plt Count 127 L Sodium 138 Potassium 3.9 Chloride 105 Carbon Dioxide 28 BUN 24 Creatinine 1.1 Estimated Creat Clear 48.39 Estimated GFR 61 Glucose 128 H Calcium 7.7 L Magnesium 1.8 Total Bilirubin 0.9 GGT 447 H AST 46 H ALT 23 Alkaline Phosphatase 444 H Total Protein 6.1 Albumin 2.7 L
--- NOTE | 2022-03-21 11:33 | PM.GSPN ---
Subjective Subjective Date Seen: 03/21/22 Patient reports: no new complaints Interval history: Patient is doing okay this morning. Denies any abdominal pain and is tolerating a regular diet. Denies any nausea or vomiting. No concerns. Exam Narrative: Exam Narrative: General: Alert and oriented, no acute distress. Nontoxic in appearance. Abdomen: Obese abdomen, soft and nontender to palpation Const: Vital Signs, click to edit/add: Vital Signs - 24 hr 03/20/22 15:00 03/20/22 15:00 03/20/22 15:00 Temperature 98 F Pulse Rate 78 Pulse Rate [Right Radial] Pulse Rate [Right] 81 81 Respiratory Rate 18 18 Blood Pressure [Ri ght Arm] 115/61 Pulse Oximetry 97 Oxygen Delivery Me thod Room Air 03/20/22 20:06 03/20/22 21:51 03/20/22 22:47 Temperature 97.7 F 97.8 F 97.8 F Pulse Rate Pulse Rate [Right Radial] Pulse Rate [Right] 86 95 Respiratory Rate 18 18 Blood Pressure [Ri ght Arm] 136/67 132/67 Pulse Oximetry 99 99 Oxygen Delivery Me thod Room Air Room Air 03/20/22 22:58 03/20/22 23:52 03/21/22 02:13 Temperature 97.8 F Pulse Rate 80 Pulse Rate [Right Radial] Pulse Rate [Right] 95 84 Respiratory Rate 18 16 Blood Pressure [Ri ght Arm] 137/78 Pulse Oximetry 98 Oxygen Delivery Me thod Room Air 03/21/22 07:31 03/21/22 08:39 Temperature 97.9 F Pulse Rate 76 Pulse Rate [Right Radial] 80 Pulse Rate [Right] Respiratory Rate 18 Blood Pressure [Ri ght Arm] 130/49 L Pulse Oximetry 94 Oxygen Delivery Me thod Room Air Labs/Imaging Labs Labs: Alkaline phosphatase and GGT remain elevated and trending up (444) Progress Note: A&P Assessment and plan (1) Elevated LFTs: Problem details: fatty liver; sepsis Status: Acute Assessment and Plan: Patient is a 51-year-old female, currently being treated for sepsis bacteremia. Clinically she has significantly improved with normalization of her WBC. Vital signs stable and afebrile. Her blood cultures are growing out E coli. Throughout her stay she has had abnormal liver panel, thought to be secondary to fatty liver and sepsis. All values have normalized, except for GGT and alkaline phosphatase which continues to trend up (444 this morning). Suspect that this is likely secondary to cholestasis from sepsis and/or medication, however recommend a HIDA scan to rule out any obstruction from gallstones. She is currently scheduled to receive the imaging tomorrow 03/22. Will have patient NPO at midnight until further evaluation. Liver Panel Results Results Liver Panel: Total Protein 6.1 g/dL (6.0-8.3) 03/21/22 Albumin 2.7 g/dL (3.3-5.0) L 03/21/22 AST 46 U/L (12-35) H 03/21/22 ALT 23 U/L (4-35) 03/21/22 Alkaline Phosphatase 444 U/L (40-150) H 03/21/22 Total Bilirubin 0.9 mg/dL (0.1-1.5) 03/21/22 Direct Bilirubin 1.4 mg/dL (0.0-0.5) H 03/16/22
[2022-03-21] MEDS: HEPARIN 5,000 UNIT/0.5 ML INJ 5000 UNIT SUBCUT ×2 (11:48→23:30)
--- NOTE | 2022-03-21 14:43 | PC.SOCIAL ---
Discharge planning: Met with pt and sister, Conchita, in room regarding discharge plan. Conchita is visiting from [place]. Pt's sister, Nicci, is her Power of Corporate Sales Representative and is the sister who patient was living with prior to admission. Per Conchita, Nicci is working with pt's [facility] case packer and sealer to find a nursing home for pt as she is unable to continue to provide care at home. Conchita agrees with plan for short term rehab stay from hospital and is requesting placement in a [facility] facility in [facility] or as close to [place] as possible. Called [facility] ans spoke with Kiya who states they currently have one bed available. Faxed information and awaiting call back with decision on admit. Provided sister with resource list of [facility] facilities and their ratings. back shoe worker to follow up as needed.
[2022-03-21] MEDS: IPRAT-ALBUT 0.5-2.5 MG/3 ML NEB 1 NEB IH (16:13)
[2022-03-21] MEDS: LOPERAMIDE HCL 2 MG CAPSULE PO (21:24)
[2022-03-21] MEDS: MELATONIN 3 MG TABLET PO (21:24)
--- NOTE | 2022-03-21 23:27 | PC.NURSE ---
Nursing Care Hours [id number] Pt this shift alert and oriented, cooperative with cares. SB assist with walker and gait belt to bathroom. Soft/loose stool x3, imodium given per pt request. IV started in R AC, patent. Nystatin powder to abdomen crease, nystatin cream to bilat groin. Minimal amount of redness to both areas. Pericare and HS, barrier ointment applied. Tolerating regular diet. Pt refused Neb treatment. LS clear, denies SOB. Bilat pitting edema 2+ lower extremeties.
[2022-03-22] VITALS (7 sets, daily range): BP systolic 122–148; BP diastolic 48–99; PULSE 72–90; RESP 18–24; TEMP 36.6–36.8; O2SAT 96–99
[2022-03-22] MEDS: PIPERACILLIN/TAZOBACTAM 3.375 GM in 0.9 % SODIUM CHLORIDE Mini-bag 100 ML IVPB ×2 (04:58→11:02)
--- NOTE | 2022-03-22 05:05 | PC.NURSE ---
[id number] Pt did well during night, no episodes of incontinence, up to br x2. 0200 BG check 48, snacks given, 15 min recheck 104, ann updated with new orders for hour bg checks until 0700. Pt BG at 0400-232 and at 0500-282, shyam updated each time, no new orders received. denies pain.
[2022-03-22] MEDS: OMEPRAZOLE 20 MG CAPSULE DR PO (05:52)
[2022-03-22 06:40] LABS: Hematocrit 32.3 % (33.0-51.0); Hemoglobin* 10.6 gm/dL (12.0-16.0); Mean Corpuscular HGB Conc 33 gm/dL (32-36); Mean Corpuscular Hemoglobin 28 pg (26-34); Mean Corpuscular Volume 85 fL (80-100); Platelet Count* 145 K/uL (140-440); Red Blood Count 3.79 m/uL (4.00-5.20); White Blood Count* 8.81 K/uL (4.50-11.00)
[2022-03-22 06:47] LABS: Slide Review Reflex No
[2022-03-22 06:58] LABS: Albumin* 2.6 g/dL (3.3-5.0); Chloride* 106 mmol/L (96-114); Potassium* 4.7 mmol/L (3.6-5.1); Sodium* 136 mmol/L (135-149)
[2022-03-22 07:00] LABS: Creatinine* 0.9 mg/dL (0.5-1.5); Est. Creatinine Clearance* 59.15; Estimated Glomerular Filt Rate 78 ml/min
--- NOTE | 2022-03-22 07:00 | CRLHL7_ITS ---
For Patients: As a result of the 21st Century Cures Act, medical imaging exams and procedure reports are released immediately into your electronic medical record. You may view this report before your referring provider. If you have questions, please contact your health care provider. HISTORY: 51-year-old female. Abnormal LFTs. Contracted gallbladder. Nausea and vomiting. Chronic abdominal pain. Evaluate gallbladder. TECHNIQUE: 5.21 millicuries of [id number] was injected intravenously. Images of the liver, gallbladder and abdomen were obtained in the anterior projection for 55 minutes. 2.60 mcg CCK was then administered intravenously and imaging was continued for an additional 30 minutes. FINDINGS: There is good uptake of activity by the hepatocytes. There is visualization of the biliary tree, gallbladder and small bowel. In response to CCK administration, there was an abnormally low gallbladder ejection fraction of 5 percent by 30 minutes. The patient stated that her presenting symptoms were very minimally reproduced during the CCK portion the examination. IMPRESSION: 1. Abnormally low gallbladder ejection fraction of 5 percent. 2. These findings are consistent with chronic cholecystitis/biliary dyskinesis/acalculous cholecystitis. Dictated by Vladimir Robledo MD @ 03/22/2022 2:05:04 PM (Electronically Signed)
[2022-03-22 07:01] LABS: Alanine Aminotransferase* 32 U/L (4-35); Alkaline Phosphatase* 486 U/L (40-150); Aspartate Amino Transferase* 53 U/L (12-35); Bilirubin Total* 0.8 mg/dL (0.1-1.5); Blood Urea Nitrogen* 21 mg/dL (7-30); Calcium* 7.6 mg/dL (8.4-10.6); Carbon Dioxide* 26 mmol/L (20-32); Gamma Glutamyl Transpeptidase* 473 U/L (8-55); Glucose* 286 mg/dL (60-115); Total Protein* 5.9 g/dL (6.0-8.3)
[2022-03-22 07:02] LABS: Magnesium* 1.8 mg/dL (1.5-2.6)
--- NOTE | 2022-03-22 09:09 | NUTR.NU ---
RDN with LOS note day 8. Patient admitted to hospital for sepsis, found to have UTI and bactermia. History of uncontrolled Diabetes type 2 and cognitive impairment. Current diet is NPO in anticipation for possible gallbladder removal today. Meal intakes have been mainly 100% since admit. Weight has been stable, current BMI is obese at 52.5 kg/m2. No nutrition interventions at this time. Patient is not appropriate for diet education due to hx of cognitive impairment. May need placement upon discharge. RDN will continue to monitor and follow-up prn.
[2022-03-22] MEDS: POTASSIUM CHLORIDE 10 MEQ CAPSULE ER 20 MEQ PO ×2 (09:37→18:46)
[2022-03-22] MEDS: LACTOBACILLUS ACIDOPHILUS 1 TABLET 1 TAB PO ×3 (09:37→18:46)
[2022-03-22] MEDS: ASPIRIN EC 325 MG TABLET PO (09:38)
[2022-03-22] MEDS: MAGNESIUM OXIDE 400 MG TABLET PO (09:38)
[2022-03-22] MEDS: NYSTATIN CREAM 30 GM 1 APPLIC TOPICAL ×3 (09:38→21:21)
[2022-03-22] MEDS: IPRAT-ALBUT 0.5-2.5 MG/3 ML NEB 1 NEB IH (09:39)
[2022-03-22] MEDS: NYSTATIN POWDER 1 APPLIC TOPICAL (09:39)
[2022-03-22] MEDS: LOPERAMIDE HCL 2 MG CAPSULE PO (09:40)
--- NOTE | 2022-03-22 12:04 | P.IMPN_ITS ---
Progress Note: A&P Assessment and plan (1) Urinary tract infection: Problem details: + E Coli Status: Acute Assessment and Plan: - continued clinical improvement - narrow antibiotic coverage from Zosyn to ceftriaxone at this time given sensitivities (2) Bacteremia: Problem details: secondary to Ecoli Status: Acute (3) Elevated LFTs: Status: Acute Assessment and Plan: - NAFLD versus sepsis - appreciate input from General surgery; patient having a HIDA scan today to further evaluate gallbladder - if HIDA scan is abnormal, Anesthesia consult will be obtained to discuss risks and benefits associated with anesthesia for cholecystectomy (4) Cognitive impairment: Problem details: Significant cognitive impairment, first noted around age 36 (had previously been working in the [employer]), follows as an outpatient and family supportive. Status: Acute (5) Thrombocytopenia: Problem details: Platelet abundio of 52, within normal limits on 03/22/2022 Status: Acute Assessment and Plan: - platelets normal today, no evidence of acute bleeding (6) Diabetes mellitus: Problem details: A1C 10.8 Status: Acute Assessment and Plan: - patient is typically hyperglycemic with occasional hypoglycemia; blood sugar range over the last 24 hours has been between 48-307 (48 noted at 2am, responded well to po intake) - continue Accuchecks and SSI, in addition to home doses of long-acting insulin (7) Demand ischemia: Problem details: TTE results: Normal LV size, normal global systolic function, EF 60-65%. RV function mildly reduced, no significant valvular disease Status: Acute Assessment and Plan: - Troponin peak 0.49, patient asymptomatic and no longer tachycardic - reassuring telemetry and echo per above Plan - per above (transition from Zosyn to Ceftriaxone, HIDA today, plan pending results) - Heparin for ppx - Pending HIDA results, medically stable for d/c in the next 1-2 days, appreciate SW input for discharge planning - sister Conchita updated at bedside, questions answered Subjective Date Seen: 03/22/22 Interval history: One episode of hypoglycemia overnight that responded well to p.o. intake. Patient has no concerns for hospitalist team, specifically denies chest pain, abdominal pain, or dyspnea. She is having a HIDA scan today for persistently elevated LFTs, may need cholecystectomy pending results. Her lab abnormalities that were present on admission are all significantly improving. She is working with therapies, and social work is involved to assist with discharge planning. Exam Narrative: Exam Narrative: GEN: Alert and sitting comfortably in bedside chair HEENT: Normal external ears, EOMIs bilaterally, no scleral icterus CV: RRR, No concerning murmurs, rubs, or gallops R: LCTA bilaterally without concerning wheezing, rales, or rhonchi, air movement adequate Ext: 2-3+ pitting edema bilateral lower extremities, symmetric Skin: No concerning skin lesions or rashes on exposed skin Neuro: No focal deficits, no resting tremor Psych: Appropriate for chronic conditions, cognitive impairment is evident Const: Vital Signs, click to edit/add: Vital Signs - 24 hr 03/21/22 15:00 03/21/22 15:00 03/21/22 19:00 Temperature 97.4 F L Pulse Rate [Right Radial] 84 84 83 Pulse Rate [Right] 84 Respiratory Rate 30 H 30 H 24 Blood Pressure [Ri t Arm] 108/56 L 125/62 Pulse Oximetry 98 99 Oxygen Delivery Me thod Room Air Room Air 03/21/22 23:00 03/21/22 23:00 03/22/22 02:35 Temperature 98.2 F 98.2 F Pulse Rate [Right Radial] 78 78 81 Pulse Rate [Right] Respiratory Rate 20 20 24 Blood Pressure [Ri ght Arm] 128/63 122/66 Pulse Oximetry 98 98 Oxygen Delivery Vt thod Room Air Room Air 03/22/22 09:00 03/22/22 07:00 Temperature 98.0 F Pulse Rate [Right Radial] 72 72 Pulse Rate [Right] Respiratory Rate 20 20 Blood Pressure [Ri t Arm] 134/88 Pulse Oximetry 99 Oxygen Delivery Me thod Room Air Labs Labs: Laboratory Results - last 24 hr 03/22/22 03/22/22 06:24 06:24 WBC 8.81 RBC 3.79 L Hgb 10.6 L Hct 32.3 L MCV 85 MCH 28 MCHC 33 Plt Count 145 Sodium 136 Potassium 4.7 Chloride 106 Carbon Dioxide 26 BUN 21 Creatinine 0.9 Estimated Creat Clear 59.15 Estimated GFR 78 Glucose 286 H Calcium 7.6 L Magnesium 1.8 Total Bilirubin 0.8 GGT 473 H AST 53 H ALT 32 Alkaline Phosphatase 486 H Total Protein 5.9 L Albumin 2.6 L
[2022-03-22] MEDS: cefTRIAXone 2 GM in 0.9 % SODIUM CHLORIDE Mini-bag 100 ML IVPB (13:52)
--- NOTE | 2022-03-22 14:28 | P.ANPROEV_ITS ---
[facility] Medical History Cognitive impairment Complex partial epilepsy Crohn's disease Depression Diabetes mellitus Dyslipidemia Hyperlipidemia Hypersomnia Morbid obesity Moyamoya Peripheral neuropathy Urinary incontinence, urge Family History Mother Diabetes Sister Diabetes Social History Narrative: She lives in [place] with her sister and her sister's family. Sister is Nicci Davila. 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 Code status is full. She does not smoke. She rarely drinks alcohol. She does not work outside the home. Her sister sets up her medications for her Highest level of school completed/degree received: Bachelor's degree Smoking Status: Never smoker How often do you have a drink containing alcohol: never AUDIT-C Alcohol total score: 0 Non-prescribed substance use: denies use Caffeine: Yes (occasionally) service: No Meds Home Medications and Allergies Home Medications Medication Instructions Recorded Confirmed Type aspirin 81 mg tablet,delayed 81 mg PO DAILY 03/16/22 03/16/22 History release (Adult Aspirin Regimen) atorvastatin 20 mg tablet 40 mg PO DAILY 03/16/22 03/16/22 History cholecalciferol (vitamin D3) 50 50 mcg PO DAILY 03/16/22 03/16/22 History mcg (2,000 unit) capsule clotrimazole-betamethasone 1 1 applic topical BID 03/16/22 03/16/22 History %-0.05 % topical cream insulin glargine 100 unit/mL (3 100 unit subcut DAILY 03/16/22 03/16/22 History mL) subcutaneous pen (Lantus Solostar U-100 Insulin) insulin lispro 100 unit/mL 40 unit subcut TIDWM 03/16/22 03/16/22 History subcutaneous pen liraglutide 0.6 mg/0.1 mL (18 mg/3 0.6 mg subcut DAILY 03/16/22 03/16/22 History mL) subcutaneous pen injector (Victoza 3-Lacho) oxybutynin chloride 5 mg 5 mg PO HS 03/16/22 03/16/22 History tablet,extended release 24 hr Allergies Allergy/AdvReac Type Severity Reaction Status Date / Time metformin AdvReac Unknown Diarrhea Verified 03/15/22 20:30 Results Labs Labs: Short CBC 03/22/22 Range/Units 06:24 WBC 8.81 (4.50-11.00) K/uL Hgb 10.6 L (12.0-16.0) gm/dL Hct 32.3 L (33.0-51.0) % Plt Count 145 (140-440) K/uL BMP 03/22/22 06:24 Sodium 136 Potassium 4.7 Chloride 106 Carbon Dioxide 26 BUN 21 Creatinine 0.9 Glucose 286 H Calcium 7.6 L Liver Function 03/22/22 Range/Units 06:24 Total Bilirubin 0.8 (0.1-1.5) mg/dL GGT 473 H (8-55) U/L AST 53 H (12-35) U/L ALT 32 (4-35) U/L Alkaline Phosphatase 486 H (40-150) U/L Albumin 2.6 L (3.3-5.0) g/dL Focused Exam Airway Mallampti: II TM distance: <3 FB Anesthesia Risk Status Procedure Time Seen by Provider: 14:15 Date Seen: 03/22/22 Planned operative procedure(s): Lap watson History History of anesthesia reactions: No Family history of reaction to anesthesia: No Risk Assessed to be at risk for difficult intubation: Yes Assessment and Plan Assessment and plan (1) Morbid obesity: Problem comment: Appears to be somewhat physically disabled due to morbid obesity Status: Acute (2) Pre-op evaluation: Status: Acute (3) Biliary dyskinesia: Status: Acute Plan Patient no history of anesthesia. BMi elevated and a potential for difficult intubation due to size and difficulty of neck movement due to size. good airway opening and MP2. Discussed with surgeon. TAPS block after induction and intubation to try to decrease the need for opioid medications. observation overnight would be good for her given her size and hypersomnia despite no definitive diagnosis of ACE. This was discussed with the patient and guardian as well.
--- NOTE | 2022-03-22 15:00 | PC.SOCIAL ---
Pt. has been accepted to the [facility]. [facility] can accept either tomorrow or not until Monday due to staffing and the holidays. PAS completed [id number] and pt. did not score a Level II screening due to her dx of Moyamoya being a Cerebralvascular disease, not developmental delay. Updated pt.'s sister Nicci at [phone] who will transport when pt. is ready for discharge. Pt. 's sister has been working with Yuliya Betancur at [facility] to help Nicci get guardianship through a housekeeper child care for pt. and assist with getting pt. on waiting lists for group homes.
--- NOTE | 2022-03-22 16:20 | NUTR.NU ---
RDN with MD consult for diet education related to diabetes and gluten-free diet. Patient has a history of cognitive impairment. RDN visited with patient's sister (Conchita) whom reported patient having poor retention and asked for patient to not be included in diet education due to her hx cognitive impairment. RDN provided patient's sister with diet education. Discussed basics of gluten-free carbohydrate counting including sources of gluten-free carbohydrates and serving sizes. Discussed consistent intake of carbohydrates and consuming ~3-5 carbohydrates per meal and ~1-2 per snack. Handouts provided to support discussion. RDN contact information provided and encouraged to call with questions. Conchita asked for 2 copies of educational materials and will provide one copy to Nicci (patient's designated caregiver). RDN to follow up as needed. Per notes, plan is for patient to be placed in [facility] [place], operated by [facility] upon discharge.
--- NOTE | 2022-03-22 19:32 | PC.NURSE ---
End of shift-- Pleasant and cooperative, alert and oriented baseline developmentally delayed patient. VSS and pt is afebrile. SPO2 maintained >94% on RA. She denied any pain. LS clear but diminished. She denied nausea and tolerated a regular diabetic diet without difficulty. 1x large partially incontinent BM today and pt was given Imodium per request. 1+ pitting edema in bilateral feet today. Blood sugars 219, 182, and 215 today. Novolog held this morning r/t NPO status, insulin otherwise given per sliding scale. She had a hida scan this morning, showered this evening and ambulated to BR, etc with SBA, belt and walker and tolerated it well. Report to ADY Beltran.
[2022-03-22] MEDS: MELATONIN 3 MG TABLET PO (21:20)
[2022-03-22] MEDS: HEPARIN 5,000 UNIT/0.5 ML INJ 5000 UNIT SUBCUT (21:20)
[2022-03-23 02:20] VITALS: BP 127/62; PULSE 80; RESP 18; TEMP 36.8; O2SAT 98
--- NOTE | 2022-03-23 03:16 | PC.NURSE ---
23-07: Pt resting well tonight, npo, vss on ra, blood glucose at 0220 was 149.
[2022-03-23 06:43] LABS: Albumin* 2.8 g/dL (3.3-5.0); Chloride* 108 mmol/L (96-114)
[2022-03-23 06:44] LABS: Potassium* 4.5 mmol/L (3.6-5.1); Sodium* 139 mmol/L (135-149)
[2022-03-23 06:46] LABS: Alanine Aminotransferase* 29 U/L (4-35); Alkaline Phosphatase* 441 U/L (40-150); Aspartate Amino Transferase* 33 U/L (12-35); Bilirubin Total* 0.5 mg/dL (0.1-1.5); Blood Urea Nitrogen* 16 mg/dL (7-30); Calcium* 7.9 mg/dL (8.4-10.6); Carbon Dioxide* 26 mmol/L (20-32); Creatinine* 0.8 mg/dL (0.5-1.5); Est. Creatinine Clearance* 66.54; Estimated Glomerular Filt Rate 90 ml/min; Gamma Glutamyl Transpeptidase* 420 U/L (8-55); Glucose* 125 mg/dL (60-115); Total Protein* 6.4 g/dL (6.0-8.3)
[2022-03-23 06:54] LABS: Hematocrit 33.8 % (33.0-51.0); Hemoglobin* 10.9 gm/dL (12.0-16.0); Mean Corpuscular HGB Conc 32 gm/dL (32-36); Mean Corpuscular Hemoglobin 28 pg (26-34); Mean Corpuscular Volume 87 fL (80-100); Platelet Count* 159 K/uL (140-440); Red Blood Count 3.88 m/uL (4.00-5.20); White Blood Count* 9.43 K/uL (4.50-11.00)
[2022-03-23 07:00] VITALS: BP 118/52; PULSE 75; RESP 20; TEMP 36.4; O2SAT 98
[2022-03-23 07:06] LABS: Slide Review Reflex No
[2022-03-23] MEDS: POTASSIUM CHLORIDE 10 MEQ CAPSULE ER 20 MEQ PO (09:02)
[2022-03-23] MEDS: LACTOBACILLUS ACIDOPHILUS 1 TABLET 1 TAB PO ×2 (09:02→12:26)
[2022-03-23] MEDS: MAGNESIUM OXIDE 400 MG TABLET PO (09:04)
--- NOTE | 2022-03-23 09:12 | PM.GSPN ---
Subjective Subjective Date Seen: 03/23/22 Interval history: Patient is doing well this morning. Denies any abdominal pain. Has been tolerating a regular diet without difficulty. No concerns. Exam Narrative: Exam Narrative: General: Alert and oriented, no acute distress Abdomen: Soft, nontender nondistended. Obese abdomen. Negative Campos sign. Const: Vital Signs, click to edit/add: Vital Signs - 24 hr 03/22/22 14:05 03/22/22 15:00 03/22/22 15:00 Temperature 98.1 F 98.2 F Pulse Rate [Right Radial] 82 Pulse Rate [Right] 74 74 Respiratory Rate 20 18 18 Blood Pressure [Ri ght Arm] 148/84 H 127/54 L Pulse Oximetry 98 98 Oxygen Delivery Me thod Room Air Room Air 03/22/22 19:00 03/22/22 23:05 03/23/22 02:20 Temperature 98.3 F 98 F 98.3 F Pulse Rate [Right Radial] 85 90 80 Pulse Rate [Right] Respiratory Rate 20 18 18 Blood Pressure [Ri ght Arm] 131/48 L 144/99 H 127/62 Pulse Oximetry 99 96 98 Oxygen Delivery Me thod Room Air Room Air 03/23/22 07:00 Temperature 97.6 F Pulse Rate [Right Radial] 75 Pulse Rate [Right] Respiratory Rate 20 Blood Pressure [Ri ght Arm] 118/52 L Pulse Oximetry 98 Oxygen Delivery Me thod Room Air Labs/Imaging Labs Labs: Liver pain reviewed, alkaline phosphatase remains elevated but is trending down (444 this morning). Progress Note: A&P Assessment and plan (1) Elevated LFTs: Status: Acute Assessment and Plan: Patient is a 51-year-old female, currently being treated for sepsis bacteremia. Is being treated for UTI with urine and blood cultures growing E coli. Clinically she has had normalization of her WBC and has improved towards baseline. There was a question about possible cholecystitis, with contracted gallbladder seen on abdominal ultrasound imaging and liver panel demonstrating persistently elevated alkaline phosphatase. A HIDA scan was obtained, which demonstrated chronic cholecystitis/biliary dyskinesia and cholestasis. I do suspect that the cholestasis is associated with her diabetes and recent illness. No evidence of obstruction with filling of the gallbladder demonstrated. The patient would benefit from a cholecystectomy, however I would recommend pursuing this as an outpatient given her overall clinical improvement. No concern at this time for the gallbladder as a possible uncontrolled infectious source. Okay for patient to discharge from a surgical perspective with no surgery planned for today. Will follow up with patient in 2 weeks in clinic with repeat LFTs at that time and to discuss a cholecystectomy as an outpatient.
[2022-03-23] MEDS: HEPARIN 5,000 UNIT/0.5 ML INJ 5000 UNIT SUBCUT (09:22)
[2022-03-23] MEDS: ASPIRIN EC 325 MG TABLET PO (09:22)
[2022-03-23] MEDS: NYSTATIN CREAM 30 GM 1 APPLIC TOPICAL (09:24)
[2022-03-23] MEDS: NYSTATIN POWDER 1 APPLIC TOPICAL (09:25)
[2022-03-23] MEDS: IPRAT-ALBUT 0.5-2.5 MG/3 ML NEB 1 NEB IH (09:25)
--- NOTE | 2022-03-23 10:47 | P.DS_ITS ---
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 Will restart this on discharge - insulin orders changed: On NovoLog U 145 units breakfast and lunch, 40 units with supper (given mild overnight hypoglycemia) - basal insulin changed to U-100 40 units Qam, 10 units HS (4) Thrombocytopenia: Status: Acute Problem details: - resolved. platelet abundio of 52 during stay (5) Demand ischemia: Status: Acute Problem details: - Troponin peak at 0.49 with no chest pain or dyspnea - TTE results: Normal LV size, normal global systolic function, EF 60-65%. 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 (7) Biliary dyskinesia: Status: Acute Problem details: - elevated LFTs, gallbladder ejection fraction of 5% on HIDA scan performed 03/22 - LFTs were trending downward 03/23, pt seen by General surgery and anesthesia during stay - Given her asymptomatic state and improving LFTs, decision was made to pursue cholecystectomy as an outpatient (8) Edema: Status: Acute Problem details: - secondary to fluid resuscitation and immobility, also noted to have hypoalbuminemia - Expect fluid mobilization with movement, reconditioning, resumption of normal diet (9) Normocytic anemia: Status: Acute Problem details: - hemoglobin remained stable throughoout stay with discharge hemoglobin of 10.9 - presumably secondary to illness, follow-up as outpatient (10) Diarrhea: Status: Acute Problem details: - intermittent, negative C diff during stay. Diarrhea presumably iatrogenic from antibiotics - will discharge on continued probiotics while on oral Keflex DS: Summary Hospital Course Hospital Course: Patient admitted to the hospital on 03/15/2022 for weakness in the setting of urosepsis. She was found to have + EColi in both urine and blood cultures, Zosyn initiated on admission and continued for 1 week. Patient's blood in urine cultures did clear during stay. Other notable findings included lab abnormalities (normocytic anemia, thrombocytopenia, elevated LFTs, elevated troponin): Details above. Alison was seen by General surgery given elevated LFTs and a low gallbladder ejection fraction of 5% on HIDA scan: Given acute illness, lack of GI symptoms, and improving trend of LFTs, cholecystectomy was deferred during this stay, and she will see Dr. Case of General surgery as an outpatient to discuss future cholecystectomy. Patient's comorbidities with details noted above, remained generally stable, although she did require some dose changes to her insulin regimen during stay. Patient accepted by the [facility] in [place] and discharged there on improved condition on 03/23/22. Sister Conchita updated at bedside, questions answered. Status at Discharge Functional status at discharge: uses cane/walker Overall status at discharge: patient is progressing back to baseline Time Spent with Patient Time attestation: Total time spent providing and/or coordinating discharge services: Time spent: Greater than 30 minutes Specific discharge activities: Medication reconciliation, care coordination, family updates. Exam Narrative: Exam Narrative: GEN: Alert, cognitive impairment at baseline HEENT: Normal external ears, EOMIs bilaterally, no scleral icterus CV: RRR, No concerning murmurs, rubs, or gallops R: LCTA bilaterally without concerning wheezing, rales, or rhonchi Ab: tolerates exam, no ttp Ext: 3+ pitting edema bilateral LEs, symmetric and stable Skin: No concerning skin lesions or rashes on exposed skin Neuro: No focal deficits, no resting tremor Psych: Appropriate Const: Vital Signs, click to edit/add: Vital Signs - 24 hr 03/22/22 14:05 03/22/22 15:00 03/22/22 15:00 Temperature 98.1 F 98.2 F Pulse Rate [Right Radial] 82 Pulse Rate [Right] 74 74 Respiratory Rate 20 18 18 Blood Pressure [Ri ght Arm] 148/84 H 127/54 L Pulse Oximetry 98 98 Oxygen Delivery Me thod Room Air Room Air 03/22/22 19:00 03/22/22 23:05 03/23/22 02:20 Temperature 98.3 F 98 F 98.3 F Pulse Rate [Right Radial] 85 90 80 Pulse Rate [Right] Respiratory Rate 20 18 18 Blood Pressure [Ri ght Arm] 131/48 L 144/99 H 127/62 Pulse Oximetry 99 96 98 Oxygen Delivery Me thod Room Air Room Air 03/23/22 07:00 Temperature 97.6 F Pulse Rate [Right Radial] 75 Pulse Rate [Right] Respiratory Rate 20 Blood Pressure [Ri ght Arm] 118/52 L Pulse Oximetry 98 Oxygen Delivery Me thod Room Air DS: Data Data Completed and Pending Labs on day of discharge: Labs from last 24 hours 03/23/22 03/23/22 05:57 05:57 WBC 9.43 RBC 3.88 L Hgb 10.9 L Hct 33.8 MCV 87 MCH 28 MCHC 32 Plt Count 159 Sodium 139 Potassium 4.5 Chloride 108 Carbon Dioxide 26 BUN 16 Creatinine 0.8 Estimated Creat Clear 66.54 Estimated GFR 90 Glucose 125 H Calcium 7.9 L Magnesium 2.0 Total Bilirubin 0.5 GGT 420 H AST 33 ALT 29 Alkaline Phosphatase 441 H Total Protein 6.4 Albumin 2.8 L Discharge Plan Discharge Disposition: [facility] Date of Admission: 03/15/22 23:44 Attending Provider on Discharge: Stacey Richmond Consulting Providers: Nola Case ; Delvis Barksdale Primary Care Provider: Provider,Not a Local Condition: Improved Anticipated Discharge Date/Time: 03/23/22 12:00 Discharge Medications: New acetaminophen 325 mg Tablet 650 mg PO Q6H PRNQty: 90 0RF Levemir FlexTouch U-100 Insuln 100 unit/mL (3 mL) Insulin Pen 10 unit subcut HS 30 Days Qty: 3 0RF Rx Instructions: may substitute for any basal insulin covered by patient's insurance nystatin 100,000 unit/gram Powder 1 applic topical BID 30 Days Qty: 60 0RF Rx Instructions: rash Lactobacillus acidophilus 0.5 mg (100 million cell) Tablet 0.5 mg PO TIDWM Qty: 30 0RF Rx Instructions: may substitute any probiotic Levemir FlexTouch U-100 Insuln 100 unit/mL (3 mL) Insulin Pen 40 unit subcut DAILY 30 Days Qty: 15 0RF Rx Instructions: may substitute for any basal insulin covered by patient insurance Victoza 3-Lacho 0.6 mg/0.1 mL (18 mg/3 mL) pen injector 0.6 mg subcut DAILY 30 Days Qty: 9 0RF cephalexin 500 mg capsule 500 mg PO TID 7 Days Qty: 21 0RF insulin aspart U-100 [Novolog Flexpen U-100 Insulin] 100 unit/mL (3 mL) insulin pen 45 unit subcut TID 30 Days Qty: 40.5 0RF Rx Instructions: 45U at breakfast and lunch, 40U with supper. Continued oxybutynin chloride 5 mg tablet extended release 24hr 5 mg PO HS Victoza 3-Lacho 0.6 mg/0.1 mL (18 mg/3 mL) pen injector 0.6 mg SUBCUT DAILY Label Comments: ADMINISTER 0.6 MG UNDER THE SKIN DAILY clotrimazole-betamethasone 1-0.05 % cream 1 applic TOPICAL BID atorvastatin 20 mg tablet 40 mg PO DAILY cholecalciferol (vitamin D3) 50 mcg (2,000 unit) capsule 50 mcg PO DAILY aspirin [Adult Aspirin Regimen] 81 mg tablet,delayed release (DR/EC) 81 mg PO DAILY Discontinued insulin lispro 100 unit/mL insulin pen 40 unit SUBCUT TIDWM insulin glargine [Lantus Solostar U-100 Insulin] 100 unit/mL (3 mL) insulin pen 100 unit SUBCUT DAILY Discharge Orders: Discharge Order (Routine); Ordered 03/23/22 Ordered By: Stacey Richmond Activity Level: Activity as Tolerated and No strenuous activity Discharge Diet: Low Fat/Low Cholesterol Follow Up Appointments: Nola Case MD [Staff Physician] - (2 week follow up, Live panel to be done prior) Provider,Not a Local [Primary Care Provider] - (see PCP (Barronett Gabriela) early next week) Admit to: SNF Discharge Potential: Fair Length of Stay: 30-90 days Can use facility standing orders?: Yes Code Status: Full Code Rehab Potential: Good Therapy: Physical Therapy and Occupational Therapy Therapy Orders: Evaluate and Treat Oxygen: No Urinary Catheter: No Glucose Checks: QID (AC and HS) Orders are good >30 days: Yes Signature: Stacey Richmond MD
[2022-03-23] MEDS: LOPERAMIDE HCL 2 MG CAPSULE PO (10:57)
[2022-03-23 11:00] VITALS: BP 119/57; PULSE 86; RESP 18; O2SAT 97
[2022-03-23] MEDS: cefTRIAXone 2 GM in 0.9 % SODIUM CHLORIDE Mini-bag 100 ML IVPB (12:23)
[2022-03-23 15:46] VITALS: BP 119/57; PULSE 86; RESP 20
--- NOTE | 2022-03-23 15:52 | PC.NURSE ---
Nurse Care Hours- [id number] Pt this shift calm and cooperative. Encouraged to be independent with ADL's, needed help with wiping the posterior end. Frequent trips to the bathroom for extra soft, semi loose stools. Nancy cares done. SB assist with walker, tolerated well. Refused nebulizer treatment. Lungs sounds clear, no cough noted. DC'd to SNF at 1400, instructions given to pt and sister in packet for SNF. IV dc'd, no issue. Wheeled out to medical transport van.
== END 2022-03-23 14:58 | DRG 720 ==
LOC: ED 22:00 → MEDSURG 23:44
PROVIDERS: Family Medicine; Admitting Provider Family Medicine; Emergency Provider Family Medicine; Visit Provider Family Medicine
DX: A41.51 Sepsis due to Escherichia coli [E. coli] (principal); N39.0 Urinary tract infection, site not specified; R42 Dizziness and giddiness; I95.9 Hypotension, unspecified; R00.0 Tachycardia, unspecified; E87.6 Hypokalemia; E11.65 Type 2 diabetes mellitus with hyperglycemia; E11.42 Type 2 diabetes mellitus with diabetic polyneuropathy; Z79.84 Long term (current) use of oral hypoglycemic drugs; I24.8 Other forms of acute ischemic heart disease; G40.209 Localization-related (focal) (partial) symptomatic epilepsy and epileptic syndromes with complex partial seizures, not intractable, without status epilepticus; E66.01 Morbid (severe) obesity due to excess calories; D69.6 Thrombocytopenia, unspecified; K76.0 Fatty (change of) liver, not elsewhere classified; R74.01 Elevation of levels of liver transaminase levels; I67.5 Moyamoya disease; K50.90 Crohn's disease, unspecified, without complications; R41.89 Other symptoms and signs involving cognitive functions and awareness; R60.9 Edema, unspecified; E88.09 Other disorders of plasma-protein metabolism, not elsewhere classified; D64.9 Anemia, unspecified; K52.1 Toxic gastroenteritis and colitis; T36.95XA Adverse effect of unspecified systemic antibiotic, initial encounter; Z68.43 Body mass index [BMI] 50.0-59.9, adult; K81.1 Chronic cholecystitis; E78.5 Hyperlipidemia, unspecified; F32.A Depression, unspecified
CPT/HCPCS: 36415; 71046; 71260; 74177; 76705; 76770; 78227; 80048; 80053; 80076; 81001; 82330; 82803; 82962; 82977; 83036; 83605; 83690; 83735; 83880; 84145; 84484; 85007; 85025; 85027; 86140; 87040; 87086; 87186; 87493; 87635; 93005; 93306; 94640; 94664; 94761; 97110; 97116; 97129; 97161; 97165; 97530; 97535; 99285; 99291; 99292; A9270; A9537; J0690; J0696; J1644; J1940; J2405; J2543; J2805; J3370; J7030; J7120; Q9957; Q9967

== ENCOUNTER 2022-04-06 13:38 | Outpatient (CLI) | payer BC, SELFPAY ==
[2022-04-06 14:42] LABS: Albumin* 3.1 g/dL (3.3-5.0)
[2022-04-06 14:45] LABS: Alanine Aminotransferase* 24 U/L (4-35); Alkaline Phosphatase* 287 U/L (40-150); Aspartate Amino Transferase* 25 U/L (12-35); Bilirubin Direct* 0.2 mg/dL (0.0-0.5); Bilirubin Total* 0.9 mg/dL (0.1-1.5); Total Protein* 6.7 g/dL (6.0-8.3)
== END 2022-04-06 13:39 | disposition home or self-care (01) ==
LOC: NFLDREF 13:39
PROVIDERS: Visit Provider Surgery
DX: R10.9 Unspecified abdominal pain (principal)
CPT/HCPCS: 80076

== ENCOUNTER 2022-06-08 16:59 | Emergency (ER) | payer BC, SELFPAY ==
[2022-06-08 17:06] VITALS: BP 135/59; PULSE 79; RESP 16; TEMP 36.7; O2SAT 98; BMI 47.6
--- NOTE | 2022-06-08 17:24 | CRLHL7_ITS ---
For Patients: As a result of the Century Cures Act, medical imaging exams and procedure reports are released immediately into your electronic medical record. You may view this report before your referring provider. If you have questions, please contact your health care provider. INDICATION: Upper left chest pain TECHNIQUE: Chest 1 view. COMPARISON: 03/20/22 FINDINGS: Cardiovascular and mediastinum: Heart size and vasculature are normal in caliber and appearance. Mediastinum is within normal limits. Lungs and pleural space: Lungs are clear. No sign of infiltrate or mass. No sign of pleural effusion. No pneumothorax. Bones and soft tissues: No significant findings. IMPRESSION: Unremarkable chest. Dictated by: Doni Laird MD @ 06/08/2022 17:50:53 (Electronically Signed)
--- NOTE | 2022-06-08 17:25 | ED_ITS ---
HPI - Chest Pain General Chief Complaint: Chest Pain Stated Complaint: Chest Pain Time Seen by Provider: 06/08/22 17:17 History of Present Illness HPI narrative: 51-year-old woman presenting to the emergency department with complaint of left upper chest pain that has been present intermittently since yesterday evening. She describes as a pressure. Does not have known cardiovascular disease per her report. She does have diabetes. No cough cold symptoms no leg pain. No history of PE or DVT that she is aware of. Looks like does take a daily aspirin. No exacerbating or relieving factors that she reports. I would note on physical exam it was somewhat reproducible. No trauma. No abdominal pain. Denies a history of palpitations. No family history of arrhythmias and no cardiovascular disease that she reports. History of cognitive impairment and lives with sister who is care provider to some degree. Concurrently notes herself to be pain free. On review of records only family history noted is diabetes. Related Data Home Medications Medication Instructions Recorded Confirmed aspirin 81 mg tablet,delayed 81 mg PO DAILY 03/16/22 04/06/22 release (Adult Aspirin Regimen) atorvastatin 20 mg tablet 40 mg PO DAILY 03/16/22 04/06/22 cholecalciferol (vitamin D3) 50 50 mcg PO DAILY 03/16/22 04/06/22 mcg (2,000 unit) capsule clotrimazole-betamethasone 1 1 applic topical BID 03/16/22 04/06/22 %-0.05 % topical cream liraglutide 0.6 mg/0.1 mL (18 mg/3 0.6 mg subcut DAILY 03/16/22 04/06/22 mL) subcutaneous pen injector (GreenSQL 3-Lacho) oxybutynin chloride 5 mg 5 mg PO HS 03/16/22 04/06/22 tablet,extended release 24 hr Previous Rx's Medication Instructions Recorded Lactobacillus acidophilus 0.5 mg 0.5 mg PO TIDWM #30 tabs 03/23/22 (100 million cell) tablet acetaminophen 325 mg tablet 650 mg PO Q6H PRN #90 tabs 03/23/22 insulin aspart U-100 100 unit/mL 45 unit (0.45 mL) subcut TID 30 03/23/22 (3 mL) subcutaneous pen (Novolog days #40.5 mL FlexPen U-100 Insulin aspart) insulin detemir U-100 100 unit/mL 10 unit (0.1 mL) subcut HS 30 days 03/23/22 (3 mL) subcutaneous pen (Levemir #3 mL FlexTouch U-100 Insulin) insulin detemir U-100 100 unit/mL 40 unit (0.4 mL) subcut DAILY 30 03/23/22 (3 mL) subcutaneous pen (Levemir days #15 mL FlexTouch U-100 Insulin) liraglutide 0.6 mg/0.1 mL (18 mg/3 0.6 mg (0.1 mL) subcut DAILY 30 03/23/22 mL) subcutaneous pen injector days #9 mL (Victoza 3-Lacho) nystatin 100,000 unit/gram topical 1 applic topical BID 30 days #60 03/23/22 powder grams Allergies Allergy/AdvReac Type Severity Reaction Status Date / Time metformin AdvReac Unknown Diarrhea Verified 04/06/22 13:56 Review of Systems Status of ROS Reports: 10 or more systems reviewed and unremarkable except as noted in History and below PFSH [facility] Medical History Biliary dyskinesia Cognitive impairment Complex partial epilepsy Crohn's disease Depression Diabetes mellitus Dyslipidemia Hyperlipidemia Hypersomnia Morbid obesity [place] Peripheral neuropathy Urinary incontinence, urge Family History Mother Diabetes Sister Diabetes Social History Narrative: She lives in [place] with her sister and her sister's family. Sister is Nicci Davila. 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 Code status is full. She does not smoke. She rarely drinks alcohol. She does not work outside the home. Her sister sets up her medications for her Highest level of school completed/degree received: Bachelor's degree Smoking Status: Never smoker Do you use any of these nicotine containing products: None How often do you have a drink containing alcohol: never How often do you have six or more drinks on one occasion: Never AUDIT-C Alcohol total score: 0 Non-prescribed substance use: denies use Caffeine: Yes (occasionally) service: No Exam Narrative Exam Narrative: Pleasant. NAD. Somewhat flatter affect. Little distracted. Skin is warm and dry. No evidence of rash. Extremities are well perfused without edema. Nontender with negative Homans. Moving all extremities without difficulty. Lungs are clear with equal expansion excursion does not demonstrate splinting. Palpation of the chest wall does show area of tenderness in the left upper chest wall. This is the area of discomfort. Abdomen is overweight soft and nontender. Oropharynx moist no asymmetry. Const Vital Signs, click to edit/add: Vital Signs - 24 hr 06/08/22 17:06 06/08/22 17:58 06/08/22 17:58 Temperature 98.0 F 98.0 F Pulse Rate [Pulse Oximeter] 79 65 Respiratory Rate 16 16 Blood Pressure [Left Upper Arm] 135/59 L 135/75 Pulse Oximetry 98 95 96 Oxygen Delivery Method Room Air Room Air 06/08/22 19:57 06/08/22 21:00 Temperature 97.5 F L 97.8 F Pulse Rate [Pulse Oximeter] 75 78 Respiratory Rate 16 16 Blood Pressure [Left Upper Arm] 111/76 132/70 Pulse Oximetry 99 99 Oxygen Delivery Method Room Air Room Air Documenting provider has reviewed patient's vital signs: yes Course Vital Signs Vital signs: Initial Vital Signs Temperature 98.0 F 06/08/22 17:06 Temperature Source Temporal Artery Scan 06/08/22 17:06 Pulse Rate 79 06/08/22 17:06 Pulse Rhythm 06/08/22 17:06 Respiratory Rate 16 06/08/22 17:06 Blood Pressure 135/59 L 06/08/22 17:06 Blood Pressure Mean 84 06/08/22 17:06 Blood Pressure Position Supine 06/08/22 17:06 Pulse Oximetry 98 06/08/22 17:06 Oxygen Delivery Method 06/08/22 17:06 Vital Signs Temperature 98.0 F 06/08/22 17:06 Pulse Rate 79 06/08/22 17:06 Respiratory Rate 16 06/08/22 17:06 Blood Pressure 135/59 L 06/08/22 17:06 Pulse Oximetry 98 06/08/22 17:06 Oxygen Delivery Method 06/08/22 17:06 Temperature 97.8 F 06/08/22 21:00 Pulse Rate 78 06/08/22 21:00 Respiratory Rate 16 06/08/22 21:00 Blood Pressure 132/70 06/08/22 21:00 Pulse Oximetry 99 06/08/22 21:00 Oxygen Delivery Method 06/08/22 21:00 MDM - Chest Pain MDM Narrative Medical decision making narrative: Does appear to have some degree of chest wall pain. Will evaluate though from cardiac standpoint though as well history of diabetes and possibly more subtle symptoms. Pulmonary embolus also in differential. Costochondritis as well. cxr reviewed by me is unremarkable. labs remarkable for rather elevated blood sugar elevated d-dimer and with limited information I think prudent to cta chest. elevated crp of 2 may be playing a role in elevated d-dimer. unclear infectious source. I review images. radiology overread as below Bones: Multilevel degenerative changes of the spine. No suspicious/aggressive focal osseous lesion. IMPRESSION: 1. Limited evaluation secondary to suboptimal contrast opacification and patient body habitus. No large central pulmonary embolus. 2. No evidence of pulmonary infarct. No evidence of right heart strain. did not require intervention in ER; without events on monitor and without significant discomfort. Medical Records Data Attestation: I reviewed the patient's medical records. Lab Data Attestation: I reviewed the patient's lab results. Labs: Lab Results 06/08/22 06/08/22 06/08/22 Range/Units 17:41 17:41 17:41 WBC 6.38 (4.50-11.00) K/uL RBC 4.41 (4.00-5.20) m/uL Hgb 12.2 (12.0-16.0) gm/dL Hct 37.8 (33.0-51.0) % MCV 86 (80-100) fL MCH 28 (26-34) pg MCHC 32 (32-36) gm/dL RDW Coeff of Laquita 13.5 (11.5-15.5) % Plt Count 147 (140-440) K/uL Neut % (Auto) 59.7 (42.0-72.0) % Lymph % (Auto) 27.1 (20-44) % [place] % (Auto) 7.4 (0.0-11.0) % Eos % (Auto) 5.0 (0.0-7.0) % Baso % (Auto) 0.5 (0.0-3.0) % Neut # (Auto) 3.81 (1.7-7.0) K/uL Lymph # (Auto) 1.73 (0.90-2.90) K/uL [place] # (Auto) 0.50 (0.00-0.90) K/UL Eos # (Auto) 0.32 (0.00-0.50) K/uL Baso # (Auto) 0.03 (0.00-0.30) K/uL D-Dimer Quant (PE/DVT) 0.62 H (0.00-0.50) ug/ml Sodium 136 (135-149) mmol/L Potassium 4.1 (3.6-5.1) mmol/L Chloride 103 (96-114) mmol/L Carbon Dioxide 29 (20-32) mmol/L BUN 20 (7-30) mg/dL Creatinine 0.7 (0.5-1.5) mg/dL Estimated Creat Clear 76.04 Estimated GFR 105 ml/min Glucose 417 H* (60-115) mg/dL Calcium 8.9 (8.4-10.6) mg/dL Troponin I (0.01-0.04) ng/mL C-Reactive Protein 2.0 H (0.5-1.0) mg/dL NT-Pro-B Natriuret Pep pg/mL POC Troponin I (0.01-0.04) ng/ml 06/08/22 06/08/22 Range/Units 17:41 17:58 WBC (4.50-11.00) K/uL RBC (4.00-5.20) m/uL Hgb (12.0-16.0) gm/dL Hct (33.0-51.0) % MCV (80-100) fL MCH (26-34) pg MCHC (32-36) gm/dL RDW Coeff of Laquita (11.5-15.5) % Plt Count (140-440) K/uL Neut % (Auto) (42.0-72.0) % Lymph % (Auto) (20-44) % [place] % (Auto) (0.0-11.0) % Eos % (Auto) (0.0-7.0) % Baso % (Auto) (0.0-3.0) % Neut # (Auto) (1.7-7.0) K/uL Lymph # (Auto) (0.90-2.90) K/uL [place] # (Auto) (0.00-0.90) K/UL Eos # (Auto) (0.00-0.50) K/uL Baso # (Auto) (0.00-0.30) K/uL D-Dimer Quant (PE/DVT) (0.00-0.50) ug/ml Sodium (135-149) mmol/L Potassium (3.6-5.1) mmol/L Chloride (96-114) mmol/L Carbon Dioxide (20-32) mmol/L BUN (7-30) mg/dL Creatinine (0.5-1.5) mg/dL Estimated Creat Clear Estimated GFR ml/min Glucose (60-115) mg/dL Calcium (8.4-10.6) mg/dL Troponin I < 0.01 L (0.01-0.04) ng/mL C-Reactive Protein (0.5-1.0) mg/dL NT-Pro-B Natriuret Pep < 20 pg/mL POC Troponin I 0.00 L (0.01-0.04) ng/ml ECG Data Attestation: I personally reviewed and interpreted this ECG as follows: (Normal sinus rate of 83) Discharge Plan Discharge Clinical Impression: Chest wall pain, Hyperglycemia Patient Disposition: Home w/ Parent or Adult Condition: Improved Additional Instructions: Do stay well-hydrated water. Can take 600 mg of ibuprofen 3 times daily over the next 5 days or 500 mg naproxen 2 times daily over the same time. Might also try lidocaine patches in the area that hurts. Return for increasing persistent pain particular associated with shortness of breath or nausea. Also watch your blood sugars closely over the next week at least. They were elevated here today. Prescriptions: No Action oxybutynin chloride 5 mg tablet extended release 24hr 5 mg PO HS Victoza 3-Lacho 0.6 mg/0.1 mL (18 mg/3 mL) pen injector 0.6 mg SUBCUT DAILY Label Comments: ADMINISTER 0.6 MG UNDER THE SKIN DAILY clotrimazole-betamethasone 1-0.05 % cream 1 applic TOPICAL BID atorvastatin 20 mg tablet 40 mg PO DAILY cholecalciferol (vitamin D3) 50 mcg (2,000 unit) capsule 50 mcg PO DAILY aspirin [Adult Aspirin Regimen] 81 mg tablet,delayed release (DR/EC) 81 mg PO DAILY acetaminophen 325 mg Tablet 650 mg PO Q6H PRNQty: 90 0RF Levemir FlexTouch U-100 Insuln 100 unit/mL (3 mL) Insulin Pen 10 unit subcut HS 30 Days Qty: 3 0RF Rx Instructions: may substitute for any basal insulin covered by patient's insurance nystatin 100,000 unit/gram Powder 1 applic topical BID 30 Days Qty: 60 0RF Rx Instructions: rash Lactobacillus acidophilus 0.5 mg (100 million cell) Tablet 0.5 mg PO TIDWM Qty: 30 0RF Rx Instructions: may substitute any probiotic Levemir FlexTouch U-100 Insuln 100 unit/mL (3 mL) Insulin Pen 40 unit subcut DAILY 30 Days Qty: 15 0RF Rx Instructions: may substitute for any basal insulin covered by patient insurance Victoza 3-Lacho 0.6 mg/0.1 mL (18 mg/3 mL) pen injector 0.6 mg subcut DAILY 30 Days Qty: 9 0RF insulin aspart U-100 [Novolog FlexPen U-100 Insulin] 100 unit/mL (3 mL) insulin pen 45 unit subcut TID 30 Days Qty: 40.5 0RF Rx Instructions: 45U at breakfast and lunch, 40U with supper. Follow Up/Referrals: Provider,Not a Local [Primary Care Provider] - Stand Alone Forms: [facility] Info Instructions
[2022-06-08 17:57] LABS: Basophils Absolute Auto 0.03 K/uL (0.00-0.30); Basophils Percent Auto 0.5 % (0.0-3.0); Eosinophils Absolute Auto 0.32 K/uL (0.00-0.50); Hematocrit 37.8 % (33.0-51.0); Hemoglobin* 12.2 gm/dL (12.0-16.0); Immature Granulocytes Abs Auto 0.02 K/uL (0.00-0.30); Immature Granulocytes Pct Auto 0.3 %; Lymphocytes Absolute Auto 1.73 K/uL (0.90-2.90); Lymphocytes Percent Auto 27.1 % (20-44); Mean Corpuscular HGB Conc 32 gm/dL (32-36); Mean Corpuscular Hemoglobin 28 pg (26-34); Mean Corpuscular Volume 86 fL (80-100); Monocytes Percent Auto 7.4 % (0.0-11.0); Neutrophils Absolute Auto 3.81 K/uL (1.7-7.0); Neutrophils Percent Auto 59.7 % (42.0-72.0); Platelet Count* 147 K/uL (140-440); RDW Coefficient of Variation % 13.5 % (11.5-15.5); Red Blood Count 4.41 m/uL (4.00-5.20); White Blood Count* 6.38 K/uL (4.50-11.00)
[2022-06-08 17:58] VITALS: BP 135/75; PULSE 65; RESP 16; TEMP 36.7; O2SAT 95; O2SAT 96
[2022-06-08 18:00] LABS: Slide Review Reflex No
[2022-06-08 18:17] LABS: Chloride* 103 mmol/L (96-114); Sodium* 136 mmol/L (135-149)
[2022-06-08 18:18] LABS: Potassium* 4.1 mmol/L (3.6-5.1)
[2022-06-08 18:20] LABS: Creatinine* 0.7 mg/dL (0.5-1.5); Est. Creatinine Clearance* 76.04; Estimated Glomerular Filt Rate 105 ml/min
[2022-06-08 18:21] LABS: Blood Urea Nitrogen* 20 mg/dL (7-30); Calcium* 8.9 mg/dL (8.4-10.6); Carbon Dioxide* 29 mmol/L (20-32); D Dimer Quantitative* 0.62 ug/ml (0.00-0.50)
--- NOTE | 2022-06-08 18:25 | CRLHL7_ITS ---
For Patients: As a result of the Century Cures Act, medical imaging exams and procedure reports are released immediately into your electronic medical record. You may view this report before your referring provider. If you have questions, please contact your health care provider. INDICATION: Upper left chest pain. Elevated D-dimer. TECHNIQUE: CT chest PE was acquired with 95 cc Isovue 370 IV contrast. COMPARISON: CT chest dated 03/17/2022. FINDINGS: Heart and vasculature: No cardiomegaly, no pericardial effusion. Limited evaluation of the pulmonary arteries secondary to suboptimal contrast opacification and patient body habitus. No large central pulmonary embolus. Lungs and pleura: No evidence of pulmonary infarct. No focal consolidation. Thyroid and lower neck: No suspicious thyroid nodule. Mediastinum/keith: No lymphadenopathy. Chest wall: No axillary lymphadenopathy. Upper abdomen: No acute abnormality. Bones: Multilevel degenerative changes of the spine. No suspicious/aggressive focal osseous lesion. IMPRESSION: 1. Limited evaluation secondary to suboptimal contrast opacification and patient body habitus. No large central pulmonary embolus. 2. No evidence of pulmonary infarct. No evidence of right heart strain. Please note that all CT scans at this facility use dose modulation, iterative reconstruction, and/or weight-based dosing when appropriate to reduce radiation dose to as low as reasonably achievable. Dictated by Brice Zafar MD @ 06/08/2022 8:30:46 PM (Electronically Signed)
[2022-06-08 18:33] LABS: Glucose* 417 mg/dL (60-115)
[2022-06-08 18:35] LABS: NT Pro B Type NatriureticPept* < 20 pg/mL; Troponin I* < 0.01 ng/mL (0.01-0.04)
[2022-06-08] MEDS: 0.9 % SODIUM CHLORIDE 1000 ml 1,000 ML IV (19:04)
--- NOTE | 2022-06-08 19:56 | PC.NURSE ---
pt returned from CT, denies pain. Spoke with sister on phone.
[2022-06-08 19:57] VITALS: BP 111/76; PULSE 75; RESP 16; TEMP 36.4; O2SAT 99
[2022-06-08 21:00] VITALS: BP 132/70; PULSE 78; RESP 16; TEMP 36.6; O2SAT 99
--- NOTE | 2022-06-08 21:10 | PC.NURSE ---
pt c/o left chest pain for approx 10 minutes, now subsiding.
--- NOTE | 2022-06-08 21:48 | PC.NURSE ---
pt sister here to take pt. home. pt VSS, denies pain currently. ambulating well, declined cane use. verbalized understanding of discharge instructions and when to return, no further questions or concerns.
== END 2022-06-08 21:52 | disposition home or self-care (01) ==
PROVIDERS: Emergency Provider Family Medicine
DX: R07.89 Other chest pain (principal); E16.2 Hypoglycemia, unspecified
CPT/HCPCS: 36415; 71045; 71260; 80048; 83880; 84484; 85025; 85379; 86140; 93005; 94761; 99284; 99285; J7030; Q9967